=== PATIENT | male | born 1940 | race Caucasian/White ===

== ENCOUNTER → 2016-11-23 | Outpatient (CLI) | payer MEDICARE ==
--- NOTE | 2016-11-23 12:34 | CT ---
EXAMINATION TYPE: CT shoulder LT wo con DATE OF EXAM: 11/23/2016 12:18 PM COMPARISON: X-ray 11/27/2015 HISTORY: Arthritis CT DLP: 407 mGycm Automated exposure control for dose reduction was used. FINDINGS: There is complete loss of joint space of the glenohumeral joint with subchondral sclerosis involving the glenoid. Small cystic geode noted. Hypertrophic spurring noted along the inferior margin of the humeral head. There is severe AC joint arthropathy. Soft tissue calcifications are noted along the upper margin of the humeral head which may represent small loose bodies or related to calcific tendinosis. There is no acute fracture or dislocation. Lung field appears clear. IMPRESSION: SEVERE ARTHROPATHY OF THE GLENOHUMERAL JOINT WITH COMPLETE LOSS OF JOINT SPACE.
== END | disposition home or self-care (01) ==
LOC: RADCTMAIN 11:30
PROVIDERS: ATTEND Orthopaedic Surgery Sports Medicine
DX: M19.012 Primary osteoarthritis, left shoulder (principal)

== ENCOUNTER → 2017-03-13 | Outpatient (CLI) | payer MEDICARE ==
[2017-03-13 14:17] LABS: Blood Urea Nitrogen 22 mg/dL (9-20); Non-African American GFR(MDRD) >60 (>60 ml/min/1.73 sqM)
--- NOTE | 2017-03-13 15:22 | CT ---
EXAMINATION TYPE: CT urogram wo/w con DATE OF EXAM: 03/13/2017 3:05 PM COMPARISON: NONE HISTORY: 76-year-old male gross hematuria for 4-5 days. History of prostate cancer. TECHNIQUE: Contiguous axial scanning of the abdomen and pelvis performed without and with IV Contrast , patient injected with 100 mL of Omnipaque 300. Delayed images through the kidneys and bladder were obtained. Coronal/sagittal reconstructions performed. 3-D reconstructions generated on a dedicated in dependent workstation. CT DLP: 2617 mGycm Automated exposure control for dose reduction was used. FINDINGS: The heart is normal size without pericardial effusion. Lung bases clear without pleural effusion. Suggestion of a small hiatal hernia. No focal liver lesion or biliary ductal dilatation. Portal venous system is patent. Gallbladder, adrenal glands, spleen, and pancreas show no gross abnormality. No dilated small bowel, free fluid, or free air. No mesenteric or retroperitoneal lymphadenopathy. Moderate stool burden without pericolonic inflammatory change. Evaluation of the kidneys shows a 4 mm nonobstructive calculus in the left upper pole and additional 5 mm with adjacent 2 mm calculi in the mid to lower pole. No suspicious mass. There is symmetric upta ke and excretion of contrast from both kidneys No mesenteric or retroperitoneal lymphadenopathy. No suspicious filling defect within the collecting system or along the course of either ureter. Progressive filling of the bladder with contrast without any suspicious filling defect along the post erior aspect of the bladder. Postsurgical changes of prostatectomy with surgical clips along the pelvic sidewalls from prior lymph node dissection. Some prominent but nonenlarged inguinal chain lymph nodes are noted. No abnormal fl uid collection in the pelvis. Bones: Mild degenerative changes at the hips. Additional moderately advanced disc/endplate degenerati ve change throughout the mid and lower lumbar spine. IMPRESSION: 1. NONOBSTRUCTIVE LEFT-SIDED NEPHROLITHIASIS MEASURING UP TO 5 MM. 2. NO SUSPICIOUS URINARY TRACT CALCULUS, HYDRONEPHROSIS, RENAL MASS, OR COLLECTING SYSTEM LESION SEEN . 3. STATUS POST PROSTATECTOMY AND PELVIC LYMPH NODE DISSECTION. 4. SMALL HIATAL HERNIA.
== END | disposition home or self-care (01) ==
LOC: RADCTMAIN 13:27
PROVIDERS: ATTEND Physician Assistant
DX: N20.0 Calculus of kidney (principal); C61 Malignant neoplasm of prostate; K44.9 Diaphragmatic hernia without obstruction or gangrene; Z90.79 Acquired absence of other genital organ(s); Z98.890 Other specified postprocedural states; Z88.8 Allergy status to other drugs, medicaments and biological substances
CPT/HCPCS: 82565; 84520; 74178; 36415; 74400; Q9967

== ENCOUNTER → 2017-04-18 | Outpatient (CLI) | payer MEDICARE ==
[2017-04-18 09:19] LABS: ALT 15 U/L (21-72); AST 21 U/L (17-59); Alkaline Phosphatase 65 U/L (38-126); Anion Gap 7 mmol/L; Blood Urea Nitrogen 20 mg/dL (9-20); Calcium 9.2 mg/dL (8.4-10.2); Carbon Dioxide 28 mmol/L (22-30); Chloride 106 mmol/L (98-107); Glucose 92 mg/dL (74-99); Non-African American GFR(MDRD) >60 (>60 ml/min/1.73 sqM); Potassium 4.3 mmol/L (3.5-5.1); Sodium 141 mmol/L (137-145); Total Protein 6.8 g/dL (6.3-8.2)
[2017-04-18 09:25] LABS: Appearance,Urine Clear (Clear); Bacteria,Urine Occasional /hpf; Bilirubin,Urine Negative (Negative); Glucose,Urine (UA) Negative (Negative); INR 1.2 (<1.1); Ketones,Urine Negative (Negative); Leukocyte Esterase,Urine Negative (Negative); Mucus,Urine Occasional /hpf; Nitrite,Urine Negative (Negative); PH, Urine 6.5 (5.0-8.0); Partial Thromboplastin Time 25.1 sec (22.0-30.0); Particle Count 2193; Protein,Urine Negative (Negative); Prothrombin Time 11.8 sec (9.0-12.0); RBC,Urine 4 /hpf (0-5); Specific Gravity,Urine 1.012 (1.001-1.035); Squamous Epithelial Cell,Urine <1 /hpf (0-4); UA Billing (MACRO vs. MICRO) MICRO; Urobilinogen,Urine <2.0 mg/dL (<2.0); WBC,Urine <1 /hpf (0-5)
[2017-04-18 09:38] LABS: CHCM 32.8; HCT 46.9 % (39.0-53.0); HDW 2.23; HGB 15.1 gm/dL (13.0-17.5); MCH 31.5 pg (25.0-35.0); MCHC 32.1 g/dL (31.0-37.0); Mean Platelet Volume 7.2; RBC 4.79 m/uL (4.30-5.90); RDW 12.8 % (11.5-15.5); WBC 4.2 k/uL (3.8-10.6)
== END | disposition home or self-care (01) ==
LOC: LABPAT 07:52
PROVIDERS: ATTEND Orthopaedic Surgery Sports Medicine
DX: Z01.810 Encounter for preprocedural cardiovascular examination (principal); Z01.812 Encounter for preprocedural laboratory examination
CPT/HCPCS: 36415; 80053; 81001; 84439; 84443; 85027; 85610; 85730; 87070

== ENCOUNTER → 2017-04-18 | Outpatient (CLI) | payer MEDICARE | END | disposition home or self-care (01) | LOC: LABWHC1 07:55 | PROVIDERS: ATTEND Family Medicine | DX: E03.9 Hypothyroidism, unspecified (principal) | CPT/HCPCS: 36415; 84439; 84443 ==

== ENCOUNTER 2017-05-04 09:21 | Inpatient (IN) | payer MEDICARE ==
[2017-05-02 09:05] VITALS: BMI 27.2
[~2017-05-04 09:21] MED LIST: ACETAMINOPHEN TAB 500 MG TAB PO ONE; DEXAMETHASONE SOD PHOSPHATE 10 MG/ML 1 ML VIAL IV ONE; HYDROmorphone 1 MG/ML 1 ML SYRINGE IVP PRN; LACTATED RINGERS 1,000 ML IV SCH; LIDOCAINE 1% 20 ML VIAL (10MG/ML) FOR IV START INTRADERMA PRN; MELOXICAM 7.5 MG TAB PO ONE; MIDAZOLAM 2 MG/2 ML VIAL IV PRN; ONDANSETRON 4 MG/2 ML VIAL IVP ONE; TRANEXAMIC ACID 1,000 MG in SODIUM CHLORIDE 0.9% 100 ML IVPB ONE; ceFAZolin 2 GM in SODIUM CHLORIDE 0.9% 100 ML IVPB ONE
[2017-05-04] MEDS ORDERED: PROPOFOL 10 MG/ML 20 ML VIAL IV ONE (11:28)
[2017-05-04] MEDS ORDERED: ROCURONIUM BROMIDE 10 MG/ML 10 ML VIAL IV ONE (11:28)
[2017-05-04] MEDS ORDERED: NEOSTIGMINE 1 MG/ML 10 ML VIAL ONE (11:28)
[2017-05-04] MEDS ORDERED: SUCCINYLCHOLINE CHLORIDE 100 MG/5 ML SYR IV ONE (11:28)
[2017-05-04] MEDS ORDERED: LIDOCAINE 1% INJ 10MG/ML (20 ML MDV) ONE (11:28)
[2017-05-04] MEDS ORDERED: PHENYLEPHRINE-0.9% NACL SYG 1 MG/10 ML SYRINGE ONE (11:28)
[2017-05-04] MEDS ORDERED: GLYCOPYRROLATE 0.2 MG/ML 2 ML VIAL ONE (11:28)
[2017-05-04] MEDS ORDERED: TRANEXAMIC ACID 1,000 MG/10 ML VIAL ONE (11:28)
[2017-05-04] MEDS ORDERED: fentaNYL (PF) 50 MCG/ML 2 ML AMP ONE (11:28)
[2017-05-04] MEDS ORDERED: ePHEDrine 50 MG/ML 1 ML AMP ONE (11:28)
[2017-05-04] MEDS ORDERED: SODIUM CHLORIDE 0.9% 100 ML BAG ONE (11:28)
[2017-05-04] MEDS ORDERED: ceFAZolin 3,000 MG in SODIUM CHLORIDE 0.9% IRRIGATIO 3,000 ML IRRIGATION ONE (12:26)
[2017-05-04] MEDS ORDERED: LACTATED RINGERS 1,000 ML IV ONE (12:51)
[2017-05-04] MEDS ORDERED: VANCOMYCIN 1,000 MG VIAL MISCELLANE ONE (13:36)
[2017-05-04] MEDS ORDERED: PROCHLORPERAZINE SUPPOSITORY 25 MG SUPP RECTAL PRN (14:27)
[2017-05-04] MEDS ORDERED: diphenhydrAMINE 25 MG CAP PO PRN (14:27)
[2017-05-04] MEDS ORDERED: HYDROcodone/APAP 5-325MG 1 EACH TAB PO PRN (14:27)
[2017-05-04] MEDS ORDERED: HYDROmorphone 1 MG/ML 1 ML SYRINGE IVP PRN ×2 (14:27)
[2017-05-04] MEDS ORDERED: SENNOSIDES-DOCUSATE SODIUM 1 EACH TAB PO PRN (14:27)
[2017-05-04] MEDS ORDERED: TEMAZEPAM 15 MG CAP PO PRN (14:27)
[2017-05-04] MEDS ORDERED: ONDANSETRON 4 MG/2 ML VIAL IVP PRN (14:27)
--- NOTE | 2017-05-04 15:10 | XR ---
EXAMINATION TYPE: XR shoulder limited LT DATE OF EXAM: 05/04/2017 CLINICAL HISTORY: Left shoulder surgery TECHNIQUE: Single postoperative view of the left shoulder is obtained. COMPARISON: Left shoulder x-ray November 27, 2015 FINDINGS: There is metallic hardware from left shoulder arthroplasty which is satisfactory in positi on. Glenoid anchor is present. There is surgical resection of prominent inferior medial osteophyte. S urrounding subcutaneous gas and soft tissue swelling is noted. IMPRESSION: Metallic hardware from left shoulder surgery is satisfactory in position.
[2017-05-04] MEDS: LACTATED RINGERS 1,000 ML IV SCH ×2 (16:07→22:29)
[2017-05-04 18:03] LABS: Basophils % (A) 0 %; CH 32.1; CHCM 33.4; Eosinophils % (A) 0 %; HCT 42.4 % (39.0-53.0); HDW 2.19; HGB 14.2 gm/dL (13.0-17.5); Luc # (Auto) 0.02; Luc % (Auto) 0; Lymphocytes # (A) 0.5 k/uL (1.0-4.8); Lymphocytes % (A) 4 %; MCH 32.3 pg (25.0-35.0); MCHC 33.5 g/dL (31.0-37.0); MCV 96.5 fL (80.0-100.0); Mean Platelet Volume 7.1; Monocytes # (A) 0.3 k/uL (0-1.0); Monocytes % (A) 3 %; Neutrophils # (A) 10.4 k/uL (1.3-7.7); Neutrophils % (A) 93 %; RBC 4.39 m/uL (4.30-5.90); WBC 11.2 k/uL (3.8-10.6); WBC (Perox) 11.97
[2017-05-04] MEDS ORDERED: ACETAMINOPHEN TAB 500 MG TAB PO PRN (18:17)
[2017-05-04] MEDS: ceFAZolin 2 GM in SODIUM CHLORIDE 0.9% 100 ML IVPB SCH (20:09)
[2017-05-04] MEDS: CARBIDOPA-LEVODOPA 25-100 MG 1 EACH TAB PO SCH (20:11)
[2017-05-04] MEDS: amLODIPine 5 MG TAB PO SCH (20:18)
[2017-05-04] MEDS: LEVOTHYROXINE 75 MCG TAB PO SCH (20:19)
[2017-05-04] MEDS: DOXYCYCLINE 50 MG CAP PO SCH (22:04)
[2017-05-04] MEDS: HYDROmorphone 1 MG/ML 1 ML SYRINGE IVP PRN (22:24)
[2017-05-05] MEDS: HYDROmorphone 1 MG/ML 1 ML SYRINGE IVP PRN (01:32)
[2017-05-05 02:15] VITALS: RESP 16
[2017-05-05] MEDS: HYDROcodone/APAP 5-325MG 1 EACH TAB PO PRN ×2 (02:58→08:48)
[2017-05-05] MEDS: ceFAZolin 2 GM in SODIUM CHLORIDE 0.9% 100 ML IVPB SCH (04:49)
[2017-05-05] MEDS: hydrOXYzine PAMOATE 25 MG CAP PO PRN ×2 (05:26→08:48)
[2017-05-05] MEDS: CARBIDOPA-LEVODOPA 25-100 MG 1 EACH TAB PO SCH ×5 (05:28→19:01)
[2017-05-05] MEDS ORDERED: CARBIDOPA-LEVODOPA 25-100 MG 1 EACH TAB PO SCH (06:00)
[2017-05-05] MEDS ORDERED: LEVOTHYROXINE 75 MCG TAB PO SCH (06:30)
--- NOTE | 2017-05-05 07:30 | OP ---
DATE OF SERVICE: SURGEON: LANDON GARRETT MD INTERNAL INVESTIGATOR: SHELDON CELIS PA-C. PREOPERATIVE DIAGNOSIS: Left shoulder osteoarthrosis. POSTOPERATIVE DIAGNOSIS: Left shoulder osteoarthrosis. OPERATION: Left total shoulder arthroplasty. ANESTHESIA: General endotracheal with an interscalene block. ESTIMATED BLOOD LOSS: 200 mL. DRAINS: One deep drain. SPECIMENS REMOVED: COMPLICATIONS: None apparent. DISPOSITION: Postanesthesia care. OPERATIVE FINDINGS: INDICATIONS: Mr. Buckley a very pleasant 76-year-old gentleman with long-standing left shoulder pain. Work-up including x-rays revealed advanced left shoulder osteoarthrosis. At this point, it is felt that he has failed conservative management and he would like to proceed with operative intervention. The risks of the procedure were discussed with him in detail. These risks include, but are not limited to risk infection, nerve damage, bleeding, pain, instability in the shoulder, loosening of implants and deep infection, which could revision operation. There is also a risk of deep vein thrombosis, which could lead to fatal pulmonary embolism. The patient understood the risks. All questions with regards to the risks of the procedure were answered to his satisfaction. Appropriate informed consent was obtained. DESCRIPTION OF THE PROCEDURE: The patient was identified in the preoperative holding area. Surgical site was marked by both the patient and myself. He was given 2 grams of Ancef IV for prophylactic purposes. He was then transferred to the operative suite, placed supine on the operating room table. General anesthetic was then administered and dosed by the anesthesia department without apparent complication. An examination under anesthesia was then performed of the left shoulder. He had passive elevation to 90 degrees, external rotation at the side was to 25 degrees. The patient's left upper extremity was then prepped and draped usual sterile fashion. Standard surgical pause was then undertaken to ensure that we were operating on correct site and that appropriate preoperative antibiotics had been given. All staff in the room were in agreement and we proceeded. The acromion, AC joint, clavicle, and coracoid were marked with a surgical pen. A planned incision starting at the level of clavicle and extending distally over the deltopectoral interval approximately 1 cm lateral to the coracoid was marked with a surgical pen. The incision was then made with a 10 blade scalpel. Dissection was carried down sharply to the deltoid fascia. The deltopectoral interval was identified at the level of clavicle. A small band retractor was then placed onto the proximal deltoid. I then released the deltoid fascia with on the lateral aspect of the cephalic vein. The vein was left in its bed medially. The cephalic vein was protected throughout the entire case. I then identified the clavipectoral fascia. This was incised proximally to the level of the coracoacromial ligament. The coracoacromial ligament was left intact. I then used my finger to spread the interval between the conjoined tendon and the subscapularis. I felt for the axillary nerve, which was readily palpable. I then cleared the subacromial subdeltoid spaces of bursal and scar tissue. I then utilized a brown retractor to hold the deltoid and expose the humeral head. I then proceeded to release of the subscapularis in the anterior-inferior shoulder capsule. The rotator cuff was inspected. It was found to be intact. The rotator interval was identified. The course of the biceps tendon was also identified. I then released the rotator interval. It was released at the base of the coracoid and then out laterally. The subscapularis and the capsule were released intratendinously. The subscapularis and the capsule release extended distally in a lazy S fashion, approximately 1 cm medial to the biceps tendon. I then continued to release the capsule along the inferior neck in a vertical fashion to about the 6:00 position. Great care was taken to ensure that the capsule was always visualized as it was released to avoid injuring the axillary nerve. I then brought the Weinstein ceramic engineer with the arm externally rotated and abducted. I continued to release the capsule inferomedially to the 4:00 position. The inferior osteophytes were then removed as well. This was done with a rongeur. I then proceeded with preparation of the humerus. I removed all the goat coe osteophytes. I then removed the subchondral plate from the superior aspect of the humeral head using a large rongeur. I then used a starter reamer to gain access to the humeral canal. This was approximately 1 cm medial to the rotator cuff insertion and 1 cm posterior to the bicipital groove. I then prepared the humeral canal with hand reaming. I started with a 6 mm reamer and progressed in 1 mm increments until firm resistance was encountered. This was at 13 mm. The reamer handle was then left in place. I then utilized the humeral resection guide. This was set at 30 degrees 30 degrees of retrotorsion. The cutting block was set 1 to 2 mm above the insertion of the rotator cuff. I then proceeded to osteotomize the head with an oscillating saw. I removed the resection guide and then completed the osteotomy. I then proceeded with trial stem placement. A trial size 13 mini stem was broached in the canal starting with a 6 mm broach and increasing up to a 13 mm broach. A 13 mm trial stem was then placed. I then proceeded with trial reduction. I started with a 46 x 21 x 50 mm head. This fit very nicely. The head fit opposite the glenoid. The rotator cuff was not tented. Internal rotation was to 90 degrees, elevation was to 150 degrees and translation was one half of the head in neutral rotation and inferiorly one quarter of the head in 15 to 20 degrees of abduction. I then removed the trial head. The stem was left in place. I then proceeded with exposure the glenoid. At this point, I did release the biceps tendon. This was tenotomized at the level of the superior labrum. A bone hook was then used to pull the humerus laterally. I inspected the joint for any loose bodies. The condition of the rotator cuff was again inspected. It was in good condition. No evidence of a full-thickness tearing. The Bhattman retractor was then placed onto the posterior glenoid rim. The arm was then placed in approximately 70 to 80 degrees of abduction and slight flexion on the Weinstein stand. I then proceeded to remove the hypertrophic labrum to definitively identify the actual glenoid. I then selected the size of the glenoid. A large-sized glenoid fit very nicely. I then utilized the starter drill to make the centering hole. I then proceeded to ream the glenoid fossa. This was done with a large-sized reamer. The reaming was done and just taken down to the Paprika sign. I had a nice bleeding surface. There is tiny bit of posterior inferior loss, I preferentially took slightly more anterior glenoid with reaming. I then proceeded to place the glenoid drill holes. The peripheral holes were then placed and center hole was drilled as well. I then placed the trial large-sized glenoid it fit very nicely onto the glenoid. I then proceed with cementing. I waterpicked the wound and the bone. The drill holes were then packed with Ray-Deepthi sponges. The cement was then mixed on the back table by the bakery assistant. This was antibiotic-impregnated cement. Drill holes were then packed with cement utilizing 20 mL syringe. These were packed very tightly. A small amount of cement was then placed onto the posterior aspect of the real glenoid component as well. I then impacted the real glenoid component into place. This was a Biomet large-sized pegged glenoid component with Regenerex central peg. Excess cement was then removed utilizing the freer elevator. Pressure was then held on the glenoid component until the cement had hardened. I then removed the Bhattman retractor. I then proceeded with humeral component trial reduction with the glenoid. A 46 x 21 x 50 head was then placed back onto the stem. Again this was taken through trial. The head fit opposite the glenoid. The rotator cuff was not tented. Elevation was to 150 degrees, internal rotation was to 90 degrees and translation was one half of the head in neutral rotation and one quarter of the head in 15 to 20 degrees of abduction. I then had the airline security representative open a 46 x 21 x 50 real head and a size 13 Biomet mini stem. The stem was then impacted in the canal. The real head was then impacted onto the stem. The shoulder was reduced. I then proceeded with closure. The wound was again thoroughly irrigated with sterile saline solution with antibiotic added. The rotator interval was then closed with #2 Vicryl interrupted suture. The subscapularis was repaired with #2 FiberWire interrupted suture. A deep drain was then placed and brought out superiorly away from the incision. Again the wound was thoroughly irrigated. I felt for the axillary nerve, which was readily palpable. Approximately one half of 1 gram of vancomycin powder was then sprinkled into the wound. I then closed the deltopectoral interval with 0-Vicryl interrupted suture. Again, the remainder of the vancomycin powder was then sprinkled onto the wound. The subcutaneous tissues then closed with 2-0 Vicryl interrupted suture and the skin was closed with a running 3-0 Quill suture. Sterile compressive dressing was then applied. The patient's left upper extremity was placed into shoulder immobilizer. All sponge and needle counts were deemed correct prior to closure. The patient tolerated the procedure without apparent complication. He was transferred to recovery room in stable condition.
[2017-05-05] MEDS: amLODIPine 5 MG TAB PO SCH (08:48)
[2017-05-05] MEDS: PANTOPRAZOLE 40 MG TABLET PO SCH (08:48)
[2017-05-05] MEDS: DOXYCYCLINE 50 MG CAP PO SCH ×2 (08:49→20:01)
[2017-05-05] MEDS: ENOXAPARIN 40 MG/0.4 ML SYRINGE SQ SCH (08:49)
[2017-05-05] MEDS: LACTATED RINGERS 1,000 ML IV SCH ×2 (08:50→19:02)
[2017-05-05] MEDS ORDERED: HYDROcodone/APAP 7.5-325MG 1 EACH TAB PO PRN (09:00)
[2017-05-05] MEDS: ASPIRIN 81 MG CHEW PO SCH (09:21)
--- NOTE | 2017-05-05 09:54 | PN ---
DATE OF VISIT: 05/05/2017 Kj is postoperative day #1, Status post left total shoulder arthroplasty. He is resting comfortably. Pain is controlled with oral pain medicine and supplemented with Dilaudid at this point. He has no other complaints. EXAM: T-max 98.1. Blood pressure 123/68, pulse is 69, satting 96% on room air. The dressing was taken down. The incision is dry. There is no drainage at all on dressing. The drain had minimal output. I pulled the drain today. Fresh dressing was placed. He had intact extensor pollicis longus, flexor pollicis longus, extensor indicis, hand intrinsics and FDP to the small finger. Intact flexion-extension at the elbow and then also intact anterior middle and posterior deltoid function. He has an intact radial median ulnar and axillary nerve sensation and a 2+ radial pulse with brisk capillary refill in all of his digits. IMPRESSION: Postoperative day #1 left total shoulder arthroplasty. RECOMMENDATIONS: Kj is doing very well in the early postoperative period. If he is feeling better later this morning and the pain is controlled with oral pain medicine, he may be discharged home. I gave him instructions to keep the incision clean and dry. He is to utilize the sling. He is okay to do active elbow motion, wrist and hand as well. He is to keep the shoulder mobilized in a sling at all other times. He will continue with doxycycline 100 mg one p.o. b.i.d. the next 5 days and ambulation for DVT prophylaxis. All of his questions were answered to his satisfaction, we will see him back in the office in 10 days for recheck.
[2017-05-05] MEDS: HYDROcodone/APAP 7.5-325MG 1 EACH TAB PO PRN ×2 (14:25→20:05)
--- NOTE | 2017-05-05 16:25 | P.PN ---
Subjective Principal diagnosis: Left Total Shoulder Arthroplasty Patient is postop day #1 from left total shoulder arthroplasty performed by Dr. Dodge. He seen at bedside this morning. He has pain at the surgical site as expected. He denies new complaints. He denies numbness or tingling. Review of systems is negative for fever, chills, chest pain, short of breath, numbness , calf pain, tingling, headaches, nausea, vomiting, slurred speech or other. Objective - Vital Signs Vital signs: Vital Signs Temp 98.1 F 05/05/17 07:00 Pulse 69 05/05/17 08:00 Resp 16 05/05/17 08:00 BP 123/68 05/05/17 07:00 Pulse Ox 96 05/05/17 07:00 Intake & Output 05/04/17 05/05/17 05/05/17 18:59 06:59 18:59 Intake Total 1638 560 Output Total 550 1100 Balance 1088 -1100 560 Weight 86.183 kg Intake: IV 1401 Oral 237 560 Output: Urine 350 900 Straight 225 Uretheral (Deutsch) 200 Post Void Residual 200 Estimated Blood Loss 200 Other: Voiding Method Urinal Urinal Urinal - Exam Inspection of the left upper extremity shows benign surgical wound. There is no active bleeding, drainage or dehiscence. Left upper extremity neurovascular status intact with motor and sensation throughout. There is 2+ radial pulse and less than 2 second cap refill distally. Calves are soft and nontender. Abdomen soft and nontender. - Constitutional General appearance: Present: no acute distress - Psychiatric Psychiatric: Present: A&O x's 3, appropriate affect, intact judgment & insight - Labs CBC & Chem 7: 05/04/17 17:31 Labs: Abnormal Lab Results - Last 24 Hours (Table) 05/04/17 Range/Units 17:31 WBC 11.2 H (3.8-10.6) k/uL Neutrophils # 10.4 H (1.3-7.7) k/uL Lymphocytes # 0.5 L (1.0-4.8) k/uL Assessment and Plan (1) Status post total shoulder arthroplasty Narrative/Plan: Patient will continue with routine postop orthopedic protocol including pain management, wound care, physical therapy, DVT prophylaxis and postop medical management. His drain has been discharged without difficulty or complication. He will likely discharge to home tomorrow, 05/06/2017. Status: Acute Time with Patient: Less than 30
--- NOTE | 2017-05-05 18:58 | CONS ---
DATE OF CONSULTATION: 05/05/2017 REASON FOR CONSULTATION: Medical management, requested by Dr. Dodge. CONSULTATION: This is a pleasant 76-year-old patient of Dr. Del Valle whose chronic stable medical conditions include GERD, Parkinson's disease, hypothyroid, osteoarthritis. Patient underwent left total shoulder arthroplasty. Post procedure he has some pain. No nausea or vomiting. Did tolerate his diet. At baseline he has some tremors. REVIEW OF SYSTEMS: CONSTITUTIONAL: None. HEENT: None. RESPIRATORY: None. CARDIOVASCULAR: None. GASTROINTESTINAL: Heartburn. GENITOURINARY: None. MUSCULOSKELETAL: Arthritic pain in multiple joints. DERMATOLOGICAL: None. HEMATOLOGIC: None. LYMPHATICS: None. PSYCHIATRY: None. NEUROLOGICAL: Tremors present. PAST MEDICAL HISTORY: 1. GERD. 2. Prostate cancer. 3. Parkinson's disease. PAST SURGICAL HISTORY: 1. Bladder surgery. 2. Cardiac catheterization. 3. Left knee replacement. 4. Bilateral cataracts. SOCIAL HISTORY: No smoking. Alcohol occasionally. FAMILY HISTORY: Reviewed; non-contributory to presentation. HOME MEDICATIONS: 1. Norvasc 5 mg a day. 2. Omeprazole 20 mg a day. 3. Naproxen 500 mg a day. 4. Levoxyl 75 mcg a day. 5. Sinemet 25/100 one tablet b.i.d. at 10 a.m. and 4 p.m. and 2 tablets at 6 a.m., 12 noon and 7 p.m. 6. Tylenol 1000 mg q.6 p.r.n. ALLERGIES: REGLAN. On examination, temperature 98.1, pulse 69, respiration 16, blood pressure 123/68, pulse ox 98% on room air. GENERAL APPEARANCE: Average build. Sitting up, not in distress. EYES: Pupils equal. Conjunctivae normal. HEENT: Oral cavity normal. NECK: JVD not raised. Mass not palpable. RESPIRATORY: Effort normal. Lungs are clear. CARDIOVASCULAR: First and second sounds normal. No edema. ABDOMEN: Soft, nontender. Liver and spleen not palpable. LYMPHATIC: No lymph node palpable in neck or axillae. PSYCHIATRY: Alert and oriented x3. Mood and affect normal. NEUROLOGICAL: Resting tremors are present. MUSCULOSKELETAL: Left arm in a sling. Evidence of osteoarthritis in other joints. INVESTIGATIONS: White count 11.7. Hemoglobin 14.2. ASSESSMENT: 1. Left total shoulder arthroplasty. 2. Gastroesophageal reflux disease. 3. Idiopathic Parkinson's disease. 4. Hypothyroidism. 5. Primary osteoarthritis in multiple joints. PLAN: Home medication is to continue. Care was discussed with the patient and his at the bedside. Questions were answered. Thank you, Dr. Dodge.
[2017-05-05] MEDS: LEVOTHYROXINE 75 MCG TAB PO SCH (20:01)
[2017-05-06] MEDS: HYDROcodone/APAP 7.5-325MG 1 EACH TAB PO PRN ×2 (01:54→09:32)
[2017-05-06] MEDS: hydrOXYzine PAMOATE 25 MG CAP PO PRN (01:54)
[2017-05-06] MEDS: LACTATED RINGERS 1,000 ML IV SCH (05:18)
[2017-05-06] MEDS: CARBIDOPA-LEVODOPA 25-100 MG 1 EACH TAB PO SCH ×3 (05:27→12:43)
[2017-05-06 08:15] VITALS: BP 120/72; PULSE 95; TEMP 98.4
[2017-05-06] MEDS: DOXYCYCLINE 50 MG CAP PO SCH (09:14)
[2017-05-06] MEDS: ENOXAPARIN 40 MG/0.4 ML SYRINGE SQ SCH (09:14)
[2017-05-06] MEDS: PANTOPRAZOLE 40 MG TABLET PO SCH (09:15)
[2017-05-06] MEDS: amLODIPine 5 MG TAB PO SCH (09:16)
[2017-05-06] MEDS: ASPIRIN 81 MG CHEW PO SCH (09:33)
--- NOTE | 2017-05-06 11:24 | P.DS ---
Providers Date of admission: 05/04/17 09:21 Expected date of discharge: 05/06/17 Attending physician: Manny Dodge Consults: 05/04/17 14:34 Consult Physician Routine Consulting Provider: Norman Duggan Consult Reason/Comments: post op medical management Do you want consulting provider notified?: Yes Primary care physician: Shaji Del Valle - Discharge Diagnosis(es) (1) Osteoarthritis of left shoulder Current Visit: Yes Status: Acute (2) Status post total shoulder arthroplasty Current Visit: Yes Status: Acute Priority: Medium Hospital Course: This is a pleasant 76-year-old male who presented with shoulder osteoarthrosis who failed outpatient conservative therapy. He was admitted for a left total shoulder arthroplasty. The patient tolerated the procedure well and did well postoperatively. He's been working on active range of motion of the left wrist and all fingers left hand. He's avoided weightbearing with the left upper extremity. He has not been using the shoulder. Condition on day of discharge stable. Patient will be discharged home. Patient was cleared preoperatively for surgery by Dr. Shaji Del Valle. Patient currently denies any nausea, vomiting , fever, or chills. Patient is eating and voiding freely without difficulty. Patient has not had a bowel movement or the past 3 days but states his abdomen is soft nontender and he is not currently experiencing any abdominal distention or pain. He is passing gas without difficulty. He is currently taking a stool softener will be given a prescription for Colace 100 mg twice per day at discharge. Patient will continue to be nonweightbearing for the left upper extremity. He must continue to maintain the left upper extremity sling. We discussed he may work on gentle range of motion of the left elbow. Keep the incision site clean , dry, and intact. We discussed he may remove the dressing in 3 days. If he is not experiencing any drainage at that time would be okay for the patient to shower. Then had a follow-up with Dr. Dodge in approximately 10 days for further evaluation. At discharge, he is given prescriptions for Colace 100 mg, doxycycline 100 mg, and [place] 7.5 mg/325 mg. These medicines have been sent to the pharmacy prior to discharge. Physical Exam on day of discharge: Total Shoulder Arthroplasty: Status post surgical day number 2 Patient is examined sitting upright in bed Patient is awake and alert, and oriented 3 Vital signs stable Good chest excursion with deep inspiration and expiration Abdomen soft nontender Dressing over the left shoulder is clean, dry, and intact; Incision shows no active drainage, purulence, or obvious signs of infection Upper extremity currently placed in an arm sling Patient is able to wiggle all fingers, thumb, and move wrist throughout range of motion without significant difficulty Full range of motion of the elbow without significant difficulty Neurovascularly intact bilateral upper extremities Capillary refill less than 2 seconds bilateral upper extremities Procedures: Left total shoulder arthroplasty Patient Condition at Discharge: Stable Plan - Discharge Summary New Discharge Prescriptions: New Docusate [Colace] 100 mg PO BID #60 capsule Doxycycline Hyclate 100 mg PO BID #10 tab HYDROcodone/APAP 7.5-325MG [[place] 7.5-325] 1 - 2 tab PO Q6HR PRN #60 tab PRN Reason: Pain No Action Aspirin 81 mg PO DAILY Omeprazole [Omeprazole] 20 mg PO DAILY Levothyroxine Sodium [Levoxyl] 75 mcg PO DAILY Carbidopa-Levodopa 25-100 mg [Sinemet 25-100 mg] 8 tab PO DAILY amLODIPine [Norvasc] 5 mg PO DAILY Naproxen 500 mg PO DAILY Acetaminophen Tab [Tylenol Tab] 1,000 mg PO Q6HR PRN PRN Reason: Pain Discharge Medication List Aspirin 81 mg PO DAILY 05/23/15 [History] Carbidopa-Levodopa 25-100 mg [Sinemet 25-100 mg] 8 tab PO DAILY 05/23/15 [ History] Levothyroxine Sodium [Levoxyl] 75 mcg PO DAILY 05/23/15 [History] Naproxen 500 mg PO DAILY 05/23/15 [History] Omeprazole [Omeprazole] 20 mg PO DAILY 05/23/15 [History] amLODIPine [Norvasc] 5 mg PO DAILY 05/23/15 [History] Acetaminophen Tab [Tylenol Tab] 1,000 mg PO Q6HR PRN 05/02/17 [History] Docusate [Colace] 100 mg PO BID #60 capsule 05/05/17 [Rx] Doxycycline Hyclate 100 mg PO BID #10 tab 05/05/17 [Rx] HYDROcodone/APAP 7.5-325MG [[place] 7.5-325] 1 - 2 tab PO Q6HR PRN #60 tab [Rx] Follow up Appointment(s)/Referral(s): Manny Dodge MD [STAFF PHYSICIAN] - 10 Days Activity/Diet/Wound Care/Special Instructions: 1. Take meds as directed 2. f/u with Dr. Dodge in office 3. None weightbearing left upper extremity 4. Maintain sling 5. keep wound clean and dry Discharge Disposition: HOME SELF-CARE
--- NOTE | 2017-05-08 08:16 | PN ---
DATE OF SERVICE: 05/07/2017 PRESENTING COMPLAINT: Left shoulder surgery. INTERVAL HISTORY: Patient is status post left shoulder surgery. Feeling overall weak, finding it unable to get out of bed. Did tolerate his diet. is at the bedside. Tremors are present. Review of symptoms done for constitutional, cardiovascular, GI, pulmonary, neurological; relevant findings as above. Current medications are reviewed. On examination, temperature 98.4, pulse 95, respiration 16, blood pressure 120/72, pulse ox 95% on room air. GENERAL APPEARANCE: Sitting in bed, awake. EYES: Pupils equal. Conjunctivae normal. NECK: JVD not raised. Mass not palpable. RESPIRATORY: Effort normal. LUNGS: Clear. CARDIOVASCULAR: First and second sounds normal. No edema. Left arm in a sling. NEUROLOGICAL: Movements are slow. ASSESSMENT: 1. Left shoulder arthroplasty. 2. Gastroesophageal reflux disease. 3. Idiopathic Parkinson's disease with possibly off effect given the surgery as part of on and off effect of Parkinson's disease. 4. Hypothyroidism. 5. Primary osteoarthritis of multiple joints. PLAN: Care was discussed with the patient and his in detail. Did explain that it is quite common with surgery to have off effect where the patient becomes weaker from Parkinson's disease. No change in medications to be done except just to check keep a close eye and they understand the same. Thank you, Dr. oDdge.
== END 2017-05-06 14:27 | disposition home or self-care (01) | DRG 483 ==
LOC: 2ORMAIN 09:21 → 3SUR 14:38
PROVIDERS: ADMIT Orthopaedic Surgery Sports Medicine; ATTEND Orthopaedic Surgery Sports Medicine
PROC: 0RRK0JZ Replacement of Left Shoulder Joint with Synthetic Substitute, Open Approach (ICD-10-PCS; principal; 2017-05-04 11:00)
DX: M19.012 Primary osteoarthritis, left shoulder (principal); G20 Parkinson's disease; I10 Essential (primary) hypertension; I25.10 Atherosclerotic heart disease of native coronary artery without angina pectoris; M75.22 Bicipital tendinitis, left shoulder; E03.9 Hypothyroidism, unspecified; K21.9 Gastro-esophageal reflux disease without esophagitis; R53.1 Weakness; Z79.82 Long term (current) use of aspirin; Z79.899 Other long term (current) drug therapy; Z85.46 Personal history of malignant neoplasm of prostate; Z96.652 Presence of left artificial knee joint
CPT/HCPCS: 85025; 88300

== ENCOUNTER → 2018-01-11 | Outpatient (CLI) | payer MEDICARE ==
--- NOTE | 2018-01-11 09:20 | US ---
EXAMINATION TYPE: US abdomen comp/pelvis limited DATE OF EXAM: 01/11/2018 COMPARISON: NONE CLINICAL HISTORY: 77-year-old male K59.00. Intermittent constipation x 1 month Technique: Multiple sonographic images of the abdomen and bladder are obtained. FINDINGS: Liver Length: 15.2 cm Gallbladder Wall: 0.2 cm CBD: 0.4 cm Spleen: n/a Right Kidney: 10.7 x 5.5 x 5.0 cm Left Kidney: 10.8 x 5.7 x 5.3 cm Pancreas: Only a small portion of the pancreatic neck is seen. Remainder suboptimally visualized sec ondary to shadowing from bowel gas. Liver: Limited intercostal views show overall homogeneous echotexture. No focal lesion seen. Gallbladder: Scanned intercostally, limited by rib shadowing. No abnormal distention, wall thickenin g, pericholecystic fluid, or shadowing calculi. CBD: visualized portions wnl, limited by overlying bowel gas Spleen: obscured by overlying bowel gas Right Kidney: No hydronephrosis. Left Kidney: No hydronephrosis. However, echogenic foci present within the kidney, largest is in the central aspect, possibly in the collecting system measuring 1.3 cm. Limited by rib shadowing Upper IVC: wnl Abd Aorta: visualized portions wnl, mid portion obscured by overlying midline bowel gas Bladder: Underdistention limits its evaluation. Bilateral Jets Seen no IMPRESSION: 1. Prominent rib shadowing requiring intercostal windows for multiple structures. Further limitation due to bowel gas. 2. Left-sided nephrolithiasis. A 1.3 cm calculus may be located in the left renal collecting system.
== END | disposition home or self-care (01) ==
LOC: RADUSWWP 06:45
PROVIDERS: ATTEND Family Medicine
DX: N20.0 Calculus of kidney (principal); K59.00 Constipation, unspecified
CPT/HCPCS: 76700; 76857

== ENCOUNTER 2018-04-19 10:43 | Day surgery (SDC) | payer MEDICARE ==
[2018-04-17 10:27] VITALS: BMI 25.0
[~2018-04-19 10:43] MED LIST changes: -ACETAMINOPHEN TAB 500 MG TAB PO ONE; -DEXAMETHASONE SOD PHOSPHATE 10 MG/ML 1 ML VIAL IV ONE; -HYDROmorphone 1 MG/ML 1 ML SYRINGE IVP PRN; -LIDOCAINE 1% 20 ML VIAL (10MG/ML) FOR IV START INTRADERMA PRN; -MELOXICAM 7.5 MG TAB PO ONE; -MIDAZOLAM 2 MG/2 ML VIAL IV PRN; -ONDANSETRON 4 MG/2 ML VIAL IVP ONE; -TRANEXAMIC ACID 1,000 MG in SODIUM CHLORIDE 0.9% 100 ML IVPB ONE; -ceFAZolin 2 GM in SODIUM CHLORIDE 0.9% 100 ML IVPB ONE
[2018-04-19 11:34] VITALS: TEMP 98.2
[2018-04-19] MEDS ORDERED: LIDOCAINE 1% 20 ML VIAL (10MG/ML) FOR IV START INTRADERMA ONE (11:42)
[2018-04-19] MEDS ORDERED: LIDOCAINE 1% INJ 10MG/ML (20 ML MDV) ONE (12:00)
[2018-04-19] MEDS ORDERED: PROPOFOL 10 MG/ML 20 ML VIAL IV ONE (12:00)
--- NOTE | 2018-04-19 12:21 | P.PCN ---
Date of Procedure: 04/19/18 Procedure(s) Performed: BRIEF HISTORY: Patient is a 77-year-old, pleasant, male, scheduled for an upper endoscopy as a part of evaluation of epigastric pain for the last few months duration. He feels like upper abdominal discomfort with bloating and tightness. No help with Prilosec which he took for a few weeks. His and scheduled for an upper endoscopy to evaluate further. PROCEDURE PERFORMED: Esophagogastroduodenoscopy with biopsy. PREOPERATIVE DIAGNOSIS: Epigastric pain a few months duration. IV sedation per anesthesia. PROCEDURE: After informed consent was obtained, the patient was brought into the endoscopy unit. IV sedation was administered by Anesthesia under continuous monitoring. Initially the Olympus GIF-140 video endoscope was inserted into the mouth. Esophagus intubated without any difficulty. It was gradually advanced into the stomach and duodenum and carefully examined. The bulb and the second part of the duodenum appeared normal. The scope at this time was withdrawn to the stomach, adequately insufflated with air, and upon careful examination, mucosa of the antrum, had patchy areas of erythema and biopsies were done from this area. The body, cardia and the fundus appeared normal. The scope was then withdrawn into the esophagus. The GE junction was located at 39 cm from the incisors. There was once were visualized and the GE junction consistent with LA grade a reflux esophagitis. The rest of esophagus appeared normal and the patient tolerated the procedure well. IMPRESSION: 1. Mild antral Gastritis. 2. LA grade a reflux esophagitis. RECOMMENDATIONS: The findings of this examination were discussed with the patient as well as his family. He was advised to continue with her current medications and follow antireflux measures. He'll be seen in office in 3-4 weeks..
[2018-04-19 12:28] VITALS: BP 117/68; PULSE 55; RESP 20
== END 2018-04-19 13:14 | disposition home or self-care (01) ==
LOC: ORWHC2ENDO 10:43
PROVIDERS: ATTEND Internal Medicine Gastroenterology
DX: K29.50 Unspecified chronic gastritis without bleeding (principal); K21.0 Gastro-esophageal reflux disease with esophagitis; G20 Parkinson's disease; I10 Essential (primary) hypertension; I25.119 Atherosclerotic heart disease of native coronary artery with unspecified angina pectoris; Z79.82 Long term (current) use of aspirin; Z79.1 Long term (current) use of non-steroidal anti-inflammatories (NSAID); Z79.899 Other long term (current) drug therapy; Z88.8 Allergy status to other drugs, medicaments and biological substances
CPT/HCPCS: 88305; 43239; J2001; J2704

== ENCOUNTER → 2018-05-03 | Outpatient (CLI) | payer MEDICARE ==
[2018-05-03 17:27] LABS: Blood Urea Nitrogen 23 mg/dL (9-20)
--- NOTE | 2018-05-04 08:29 | CT ---
EXAMINATION TYPE: CT abdomen pelvis w con DATE OF EXAM: 05/03/2018 COMPARISON: 03/13/2017 INDICATION: Lower abdominal pain on and off x 4 months. DLP: 736.6 mGycm, Automated exposure control for dose reduction was used. CONTRAST: 100 mL of Isovue M300. Study performed with Oral Contrast TECHNIQUE: Axial images were obtained from above the diaphragm to the pubic rami in the axial plane a t 5 mm thick sections. Reconstructed images are reviewed on the computer in the coronal plane. FINDINGS: Limited CT sections are obtained the lung bases. The lung bases are clear. CT ABDOMEN: Liver: Normal Spleen: Normal Pancreas: Normal Adrenal glands: The adrenal glands are normal. Gallbladder: Normal Kidneys: No masses are evident. No hydronephrosis is present. No cysts are present. There may be a 1.5 mm calcification in the posterior upper pole left kidney. Couple calcifications measuring 0.3 an d 0.2 cm in size with the inferior pole left kidney. Delayed images were obtained through the kidneys , which remain unremarkable. Aorta: Vascular calcification is within the aorta. Inferior vena cava: Normal. CT PELVIS: Loops of bowel within the abdomen and pelvis are normal. There are loops of bowel which are incom pletely distended or lack oral contrast limiting their evaluation. Abundant fecal debris is through t he colon. Small bowel loops distended with oral contrast appear normal. Appendix: Not visualized Urinary bladder: Normal. Genitourinary structures: Prostate is not identified. Multiple surgical clips within the lower pelvis . Osseous structures: No suspicious lytic or sclerotic lesions. Facet degenerative changes present L5-S 1 and L4-5 IMPRESSIONS: 1. Nonobstructing left renal calcifications. 2. Status post prostatectomy
== END | disposition home or self-care (01) ==
LOC: RADCTMAIN 16:43
PROVIDERS: ATTEND Internal Medicine Gastroenterology
DX: N28.89 Other specified disorders of kidney and ureter (principal); R10.13 Epigastric pain; Z90.79 Acquired absence of other genital organ(s)
CPT/HCPCS: 82565; 84520; 74177; 36415; Q9967

== ENCOUNTER → 2019-01-08 | Outpatient (CLI) | payer MEDICARE ==
--- NOTE | 2019-01-09 04:14 | FL ---
EXAMINATION: Small bowel follow through DATE: 01/08/2019 CLINICAL INDICATION: 78-year-old male epigastric pain, sensation of a tight band across the upper abd omen for about a year. Bloating and fullness. COMPARISON: Correlation CT 05/03/2018 Total Fluoroscopy Time: 16 seconds. Total images: 15. 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 There is a mildly patulous loop of small bowel in the left paramedian upper abdomen measuring 3.2 cm. Moderate to large stool burden is demonstrated. Following administration of barium, serial films were carried out to 5 hours and 15 minutes. Barium i s seen to reach the colon likely at approximately the 5 hour point. Loops of jejunum and ileum are compressed and examined under fluoroscopy. Aside from the mildly patul ous proximal jejunal loops mentioned above, small bowel loops have a normal-caliber. Some of the righ t lower quadrant small bowel loops maintain a feathery mucosal appearance. There is no abnormal mucos al fold thickening or nodularity seen. No hypersecretion with barium flocculation is evident. Otherwi se, no intrinsic or extrinsic process is suspected. IMPRESSION: 1. Delayed small bowel transit time with contrast reaching the cecum at approximately 5 hours. Some d ifferential considerations include etiologies such as hypothyroidism or intestinal pseudoobstruction given the mildly patulous proximal jejunal loops measuring up to 3.2 cm. Connective tissue disorders like scleroderma are not supported by the appearance of the small bowel on this study. 2. Some of the right lower quadrant small bowel loops maintain a feathery mucosal pattern. This appar ent reversal in the fold pattern can be seen with celiac disease. However, no hypersecretion is demon strated on this study to further support this diagnosis. Clinically correlate. 3. Moderate to large stool burden.
== END ==
LOC: RADFLMAIN 08:33
PROVIDERS: ATTEND Internal Medicine Gastroenterology
DX: R10.13 Epigastric pain (principal)
CPT/HCPCS: 74250

== ENCOUNTER 2019-03-01 07:23 | Day surgery (SDC) | payer MEDICARE ==
[2019-02-27 15:50] VITALS: BMI 22.6
[2019-03-01 07:48] VITALS: RESP 16; TEMP 97.6
[2019-03-01] MEDS: LACTATED RINGERS 1,000 ML IV SCH ×2 (07:57→08:46)
[2019-03-01] MEDS ORDERED: LIDOCAINE 1% 20 ML VIAL (10MG/ML) FOR IV START INTRADERMA ONE (07:58)
[2019-03-01] MEDS ORDERED: LIDOCAINE 1% INJ 10MG/ML (20 ML MDV) ONE (08:49)
[2019-03-01] MEDS ORDERED: PROPOFOL 10 MG/ML 20 ML VIAL IV ONE (08:49)
--- NOTE | 2019-03-01 09:11 | P.PCN ---
Date of Procedure: 03/01/19 Procedure(s) Performed: BRIEF HISTORY: Patient is a 78-year-old pleasant white male, scheduled for an elective colonoscopy as a part of evaluation of abdominal bloating, abdominal discomfort and change in bowel habits for the last several months duration. PROCEDURE PERFORMED: Colonoscopy. PREOPERATIVE DIAGNOSIS: Abdominal bloating, abdominal pain and change in bowel habits. IV sedation per Anesthesia. PROCEDURE: After informed consent was obtained, the patient, was brought into the endoscopy unit. IV sedation was administered by Anesthesia under continuous monitoring. Digital rectal examination was normal. Initially the Olympus CF-160 flexible video colonoscope was then inserted in the rectum, gradually advanced into the cecum without any difficulty. Careful examination was performed as the scope was gradually being withdrawn. Ileocecal valve and the appendiceal orifice were visualized and appeared normal. Prep was excellent. Mucosa of the cecum, ascending colon, transverse colon, descending colon, sigmoid colon, and rectum appeared normal. Retroflexion was performed in the rectum and grade 2 internal hemorrhoids were seen. The patient tolerated the procedure well. IMPRESSION: Normal-appearing colon from rectum to cecum with no evidence of colitis or colorectal neoplasia . Grade 2 internal hemorrhoids RECOMMENDATIONS: Findings of this examination were discussed with the patient as well as his family. He was advised to be a high-fiber diet and take fiber supplements a regular basis and use MiraLAX as needed for the chronic constipation.
[2019-03-01 09:17] VITALS: PULSE 56
[2019-03-01 09:36] VITALS: BP 126/66
== END 2019-03-01 09:57 | disposition home or self-care (01) ==
LOC: ORWHC2ENDO 07:23
PROVIDERS: ATTEND Internal Medicine Gastroenterology
DX: K64.1 Second degree hemorrhoids (principal); R19.4 Change in bowel habit; I10 Essential (primary) hypertension; G20 Parkinson's disease; K21.9 Gastro-esophageal reflux disease without esophagitis; Z79.82 Long term (current) use of aspirin; Z79.890 Hormone replacement therapy; Z85.46 Personal history of malignant neoplasm of prostate; Z79.899 Other long term (current) drug therapy; Z88.8 Allergy status to other drugs, medicaments and biological substances
CPT/HCPCS: 45378; J2001; J2704

== ENCOUNTER → 2019-12-12 | Outpatient (CLI) | payer MEDICARE ==
[2019-12-12 09:00] LABS: Basophils % (A) 1 %; Eosinophils # (A) 0.3 k/uL (0-0.7); Eosinophils % (A) 8 %; HCT 42.3 % (39.0-53.0); HGB 13.7 gm/dL (13.0-17.5); Lymphocytes # (A) 0.9 k/uL (1.0-4.8); Lymphocytes % (A) 28 %; MCH 31.6 pg (25.0-35.0); MCHC 32.3 g/dL (31.0-37.0); MCV 97.7 fL (80.0-100.0); Mean Platelet Volume 7.6; Monocytes # (A) 0.2 k/uL (0-1.0); Monocytes % (A) 7 %; Neutrophils # (A) 1.8 k/uL (1.3-7.7); Neutrophils % (A) 55 %; Platelet Count 154 k/uL (150-450); RBC 4.33 m/uL (4.30-5.90); RDW 12.2 % (11.5-15.5); WBC 3.4 k/uL (3.8-10.6)
[2019-12-12 18:04] LABS: African American GFR (CKD) 99.9 (60.0-200.0); BUN/Creat Ratio 26.25 Ratio (12.00-20.00); Calcium 9.1 mg/dL (8.7-10.3); Carbon Dioxide 28.7 mmol/L (21.6-31.8); Chloride 105 mmol/L (96-109); Chol/HDL Ratio 2.41; Cholesterol 147 mg/dL (0-200); Glucose 90 mg/dL (70-110); Non-African American GFR(CKD) 86.2 (60.0-200.0); Potassium 4.1 mmol/L (3.5-5.5); Sodium 140 mmol/L (135-145); Total Protein 5.9 g/dL (6.2-8.2); Triglycerides <50.0 mg/dL (0.0-149.0)
[2019-12-12 18:05] LABS: ALT <8 U/L (10-49); AST 14 U/L (14-35); Albumin/Globulin Ratio 2.47 (1.60-3.17); Alkaline Phosphatase 67 U/L (41-126); Globulin 1.7 g/dL (1.6-3.3); Total Bilirubin 0.8 mg/dL (0.3-1.2)
== END | disposition home or self-care (01) ==
LOC: LABWHC1 08:25
PROVIDERS: ATTEND Family Medicine
DX: Z00.00 Encounter for general adult medical examination without abnormal findings (principal); N40.0 Benign prostatic hyperplasia without lower urinary tract symptoms; E03.9 Hypothyroidism, unspecified
CPT/HCPCS: 36415; 80053; 80061; 84153; 84443; 85025

== ENCOUNTER → 2020-05-30 | Outpatient (CLI) | payer MEDICARE ==
--- NOTE | 2020-05-30 13:48 | CT ---
EXAMINATION TYPE: CT sinus wo con DATE OF EXAM: 05/30/2020 COMPARISON: None HISTORY: Sinus congestion and drainage, worse on the right. CT DLP: 748.[address] of the paranasal sinuses was performed in the axial and coronal planes. Bone and soft tissue settings are submitted. The paranasal sinuses demonstrate normal aeration and development. There is complete opacification of the right sphenoid sinus extending into the right-sided ethmoid ai r cells. The left sphenoid sinus, left sided ethmoid air cells, bilateral maxillary sinuses and front al sinuses are all well aerated The osteal meatal units are patent bilaterally. The nasal septum is midline. No bony destructive changes are seen within the field of view. IMPRESSION: There is complete opacification of the right sphenoid sinus extending into the right-sided ethmoid ai r cells. High density mucous suggests inspissated mucus or superimposed infection.
== END | disposition home or self-care (01) ==
LOC: RADCTMAIN 13:00
PROVIDERS: ATTEND Otolaryngology
DX: J32.9 Chronic sinusitis, unspecified (principal)
CPT/HCPCS: 70486

== ENCOUNTER → 2021-03-08 | Outpatient (CLI) | payer MEDICARE ==
--- NOTE | 2021-03-08 15:04 | US ---
EXAMINATION TYPE: US thyroid st tissue head/neck DATE OF EXAM: 03/08/2021 COMPARISON: NONE CLINICAL HISTORY: E04.1 Thyroid Nodule. right thyroid nodule GLAND SIZE: Right Lobe: 4.8 x 1.5 x 1.8 cm Overall Parenchyma: homogenous Left Lobe: 3.6 x 1.2 x 1.2 cm Overall Parenchyma: homogeneous Isthmus Thickness: 0.2 cm NODULES RIGHT: # of nodules measured on right: 1 1. 1.6 X 1.1 x 1.3 cm, lower , solid , hyperechoic nodule, which is wider than tall, with ill-defin ed margins, without echogenic foci. Prior size: no prior LEFT: # of nodules measured on left: 0 ISTHMUS: # of nodules measured in the isthmus: 0 Bilateral neck scanned, no evidence of lymphadenopathy. Somewhat small slightly heterogeneous thyroid with slightly hyperechoic lower pole right thyroid nodu le as detailed above. IMPRESSION: There is TR 3 lesion lower pole right thyroid. 2017 ACR TI-RADS LEVEL: Mildly Suspicious: Follow if ? 1.5 cm at 1, 3, and 5 y *Highest TI-RADS level nodule reported
--- NOTE | 2021-03-08 16:08 | CT ---
EXAMINATION TYPE: CT sinus wo con DATE OF EXAM: 03/08/2021 COMPARISON: CT sinus study May 30, 2020 HISTORY: Chronic sinusitis Per order. CT DLP: 669 mGycm. Automated Exposure Control for Dose Reduction was Utilized. TECHNIQUE: CT scan of the sinuses is performed without contrast, axial images are obtained, coronal r eformatted images are also reviewed. FINDINGS: Persistent completely opacified barely hyperdense right sphenoid sinus without bony destruc tion. There is extension into the posterior ethmoid sinusitis image 33 redemonstrated. There is impro candace aeration in the remainder of the right-sided ethmoid sinuses from prior study. There is hypoplast ic or nonformed right frontal sinus redemonstrated. No new suspicious opacification or air-fluid lev els. Interval paranasal sinus surgery with surgically treated ostiomeatal complexes widely patent on coronal images. Visualized portion of mastoid air cells show no abnormal opacification. The globes are intact bilate rally. Visualized portion of brain parenchyma shows mild to moderate diffuse cerebral atrophy and ch ronic small vessel ischemic change. IMPRESSION: Interval paranasal sinus surgery. Interval successful treatment of majority of abnormal o pacification right ethmoid sinuses. Persistent right sphenoid sinus involvement extending into the po sterior right ethmoid sinus should be correlated with findings from prior sinus surgery. No new sinus disease identified.
== END | disposition home or self-care (01) ==
LOC: RADCTMAIN 13:34
PROVIDERS: ATTEND Otolaryngology
DX: E04.1 Nontoxic single thyroid nodule (principal); J32.9 Chronic sinusitis, unspecified
CPT/HCPCS: 36415; 70486; 76536

== ENCOUNTER → 2021-05-13 | Outpatient (CLI) | payer MEDICARE ==
[2021-05-13 15:19] LABS: Basophils # (A) 0.03 X 10*3/uL (0.00-0.10); Basophils % (A) 0.7 %; Eosinophils # (A) 0.36 X 10*3/uL (0.04-0.35); Eosinophils % (A) 8.3 %; HCT 41.4 % (39.6-50.0); HGB 13.6 g/dL (13.0-17.0); Lymphocytes # (A) 0.79 X 10*3/uL (0.90-5.00); Lymphocytes % (A) 18.2 %; MCH 32.5 pg (27.0-32.0); MCHC 32.9 g/dL (32.0-37.0); MCV 98.8 fL (80.0-97.0); Mean Platelet Volume 9.9 fL (9.5-12.2); Monocytes # (A) 0.49 X 10*3/uL (0.20-1.00); Monocytes % (A) 11.3 %; Neutrophils # (A) 2.65 X 10*3/uL (1.80-7.70); Neutrophils % (A) 61.3 %; Platelet Count 219 X 10*3/uL (140-440); RBC 4.19 X 10*6/uL (4.40-5.60); RDW 12.1 % (11.5-14.5); WBC 4.33 X 10*3/uL (4.50-10.00)
[2021-05-13 18:50] LABS: ALT <8 U/L (10-49); AST 13 U/L (14-35); African American GFR (CKD) 98.5 (60.0-200.0); Albumin/Globulin Ratio 1.95 (1.60-3.17); Alkaline Phosphatase 76 U/L (41-126); Carbon Dioxide 27.1 mmol/L (21.6-31.8); Chloride 105 mmol/L (96-109); Chol/HDL Ratio 2.58; Cholesterol 160 mg/dL (0-200); Globulin 2.1 g/dL (1.6-3.3); Glucose 85 mg/dL (70-110); LDL Cholesterol,Calculated 87.6 mg/dL (0.0-131.0); Potassium 4.2 mmol/L (3.5-5.5); Sodium 138 mmol/L (135-145); Total Bilirubin 0.7 mg/dL (0.2-1.2); Total Protein 6.2 g/dL (6.2-8.2)
== END | disposition home or self-care (01) ==
LOC: LABWHC1 09:30
PROVIDERS: ATTEND Family Medicine
DX: Z00.00 Encounter for general adult medical examination without abnormal findings (principal); N40.0 Benign prostatic hyperplasia without lower urinary tract symptoms; M11.2 Other chondrocalcinosis; E03.9 Hypothyroidism, unspecified; E78.5 Hyperlipidemia, unspecified
CPT/HCPCS: 36415; 80053; 80061; 82306; 82607; 84443; 85025

== ENCOUNTER → 2021-10-06 | Outpatient (CLI) | payer MEDICARE ==
--- NOTE | 2021-10-06 16:31 | US ---
EXAMINATION TYPE: US thyroid st tissue head/neck DATE OF EXAM: 10/06/2021 COMPARISON: 03/08/2021 CLINICAL HISTORY: 80-year-old male E04.1 Thyroid nodule. TECHNIQUE: Multiple sonographic images of the thyroid gland are obtained. FINDINGS: GLAND SIZE: Right Lobe: 5.0x1.5x1.8 cm Overall Parenchyma: homogenous Left Lobe: 3.9x1.2x1.3 cm Overall Parenchyma: homogeneous Isthmus Thickness: 0.2 cm NODULES RIGHT: # of nodules measured on right: 1 1. 1.7 X 1.3 x 1.0 cm, solid isoechoic TR3 nodule, which is wider than tall, with smooth margins, w ithout echogenic foci. Prior size: 1.6 x 1.3 x 1.1 cm LEFT: # of nodules measured on left: 0 ISTHMUS: # of nodules measured in the isthmus: 0 Bilateral neck scanned, no evidence of lymphadenopathy. IMPRESSION: Solid 1.7 cm TR3 nodule in the right lobe. Ongoing follow-up can be performed. FNA if it reaches 2.5 cm.
== END ==
LOC: RADUSWWP 14:33
PROVIDERS: ATTEND Otolaryngology
DX: E04.1 Nontoxic single thyroid nodule (principal)
CPT/HCPCS: 76536

== ENCOUNTER → 2022-05-09 | Outpatient (CLI) | payer MEDICARE ==
--- NOTE | 2022-05-09 20:01 | US ---
EXAMINATION TYPE: US thyroid st tissue head/neck DATE OF EXAM: 05/09/2022 COMPARISON: NONE CLINICAL HISTORY: E04.1 THYROID NODULE. follow up thyroid nodule GLAND SIZE: Right Lobe: 4.6 x 1.9 x 1.7 cm Overall Parenchyma: homogenous Left Lobe: 3.6 x 1.4 x 1.3 cm Overall Parenchyma: homogeneous Isthmus Thickness: 0.2 cm NODULES RIGHT: # of nodules measured on right: 1 1. 1.5 X 1.0 x 1.5 cm, lower , mixed cystic and solid, isoechoic nodule, which is wider than tall, with smooth margins, without echogenic foci. TR 2 Prior size: 1.7 x 1.0 x 1.3 cm LEFT: # of nodules measured on left: 0 ISTHMUS: # of nodules measured in the isthmus: 0 Bilateral neck scanned, no evidence of lymphadenopathy. IMPRESSION: No suspicious nodules. 2017 ACR TI-RADS LEVEL: TR-RADS 2 - Not Suspicious: No FNA *Highest TI-RADS level nodule reported
== END | disposition home or self-care (01) ==
LOC: RADUSWWP 11:50
PROVIDERS: ATTEND Otolaryngology
DX: E04.2 Nontoxic multinodular goiter (principal)
CPT/HCPCS: 76536

== ENCOUNTER 2022-07-28 16:46 | Emergency (ER) | payer MEDICARE ==
[2022-07-28 17:01] VITALS: TEMP 98.2
[2022-07-28] MEDS ORDERED: MORPHINE SULFATE 4 MG/ML SYRINGE IVP STA (17:23)
--- NOTE | 2022-07-28 18:27 | ED ---
General Adult HPI - General Chief complaint: Neck Pain/Injury Stated complaint: neck pain Time Seen by Provider: 07/28/22 17:10 Source: patient Mode of arrival: ambulatory Limitations: no limitations - History of Present Illness Initial comments: Patient is an 81-year-old male with history of Parkinson's presenting with chief complaint of neck pain. Patient has had chronic Neck pain for several months, he seen [facility] in [facility] past and was told that he had 2 ruptured discs in the neck. He has been receiving physical therapy which he states helped improve the pain. Patient states that over the past few days the pain has been worse than normal. He states that time he has a mild headache, but otherwise no associated headache. No vision or hearing changes. No nausea or vomiting. No chest pain or shortness of breath. No abdominal pain. No numbness, tingling, weakness. Patient has been taking Norcos with little relief. No new injury or recent fall. - Related Data Home Medications Medication Instructions Recorded Confirmed Aspirin 81 mg PO DAILY 05/23/15 03/01/19 Carbidopa-Levodopa 25-100 mg 2 tab PO 5XD 05/23/15 03/01/19 [Sinemet 25-100 mg] Levothyroxine Sodium [Levoxyl] 75 mcg PO HS 05/23/15 03/01/19 amLODIPine [Norvasc] 5 mg PO QAM 05/23/15 03/01/19 Acetaminophen Tab [Tylenol Tab] 500 mg PO Q6HR PRN 05/02/17 03/01/19 calcium polycarbophiL [Fibercon] 1,350 mg PO DAILY 04/17/18 03/01/19 polyethylene glycoL 3350 [Miralax] 17 gm PO DAILY 04/17/18 03/01/19 Hyoscyamine Sulfate [Hyoscyamine 0.125 - 0.25 mg SL TID PRN 02/27/19 03/01/19 Sulfate SL] Pantoprazole Sodium 40 mg PO QAM 02/27/19 03/01/19 diphenhydrAMINE [Benadryl] 25 mg PO HS PRN 02/27/19 03/01/19 Allergies Allergy/AdvReac Type Severity Reaction Status Date / Time metoclopramide [From Reglan] AdvReac extreme Verified 07/28/22 17:02 lightheadedness,nausea,"drug induced Parkinson sx" Review of Systems ROS Statement: Those systems with pertinent positive or pertinent negative responses have been documented in the HPI. ROS Other: All systems not noted in ROS Statement are negative. Past Medical History Past Medical History: Cancer, Chest Pain / Angina, GERD/Reflux, Thyroid Disorder Additional Past Medical History / Comment(s): tremors,PROSTATE CANCER,. PARKINSON'S History of Any Multi-Drug Resistant Organisms: None Reported Past Surgical History: Heart Catheterization, Joint Replacement, Prostate Surgery Additional Past Surgical History / Comment(s): BILAT TKA. PROSTATECTOMY. LT SHOULDER REPLACEMNT 2017. COLONOSOCPY Past Anesthesia/Blood Transfusion Reactions: No Reported Reaction Past Psychological History: No Psychological Hx Reported Smoking Status: Never smoker Past Alcohol Use History: Occasional Past Drug Use History: None Reported - Past Family History Mother Family Medical History: No Reported History General Exam Limitations: no limitations General appearance: alert, in no apparent distress Head exam: Present: atraumatic, normocephalic, normal inspection Eye exam: Present: normal appearance, PERRL, EOMI. Absent: scleral icterus, periorbital swelling, periorbital tenderness Pupils: Present: normal accommodation Neck exam: Present: normal inspection, tenderness (Paraspinal muscle tenderness, no vertebral body tenderness.) Respiratory exam: Present: normal lung sounds bilaterally. Absent: respiratory distress, wheezes, rales, rhonchi, stridor Cardiovascular Exam: Present: regular rate, normal rhythm, normal heart sounds. Absent: systolic murmur, diastolic murmur, rubs, gallop, clicks Neurological exam: Present: alert, oriented X3, CN II-XII intact Psychiatric exam: Present: normal affect, normal mood Skin exam: Present: warm, dry, intact, normal color. Absent: rash Course Vital Signs 07/28/22 07/28/22 16:57 20:22 Temperature 98.2 F Pulse Rate 67 56 L Respiratory 20 16 Rate Blood Pressure 118/56 168/69 O2 Sat by Pulse 98 100 Oximetry Medical Decision Making - Medical Decision Making Patient is an 81-year-old male presenting with chief complaint of neck pain. Patient has history of chronic back pain, states that it has been worsening over the past few days. Patient follows with Dr. Polanco. On examination there is no vertebral body tenderness, there is some paraspinal muscle tenderness. Patient has full range of motion, patient also has history of Parkinson's so examination is limited. The patient is given Morphine, reports improvement of pain on reassessment. X-ray show cervical spondylosis. Follow-up with PCP and Dr. Polanco. Report back to ER with any new or worsening symptoms. Discussed return parameters and answered all questions. Patient conveyed verbal understanding and agreed to the plan. I discussed this case in detail with my attending Dr. Nunez Disposition Clinical Impression: Neck pain Disposition: HOME SELF-CARE Condition: Good Instructions (If sedation given, give patient instructions): Cervical Strain (ED) Additional Instructions: Follow-up with PCP and Dr. Polanco. Report back to ER with any new or worsening symptoms. Take Motrin and Tylenol as needed for pain control. Is patient prescribed a controlled substance at d/c from ED?: No Referrals: Shaji Del Valle MD [Primary Care Provider] - 1-2 days Time of Disposition: 21:04
[2022-07-28 20:24] VITALS: BP 168/69; PULSE 56; RESP 16
--- NOTE | 2022-07-28 20:58 | XR ---
PROCEDURE: XR cervical spine comp - 6V DATE AND TIME: 07/28/2022 6:43 PM CLINICAL INDICATION: neck pain TECHNIQUE: Department protocol COMPARISON: None FINDINGS: There are moderate and marked spondylosis changes at all levels. No fracture or malalignmen t. No focal skeletal findings. The soft tissues are unremarkable. IMPRESSION: Cervical spondylosis.
== END 2022-07-28 21:34 | disposition home or self-care (01) ==
LOC: EC 16:46
DX: M54.2 Cervicalgia (principal); K21.9 Gastro-esophageal reflux disease without esophagitis; E07.9 Disorder of thyroid, unspecified; Z88.8 Allergy status to other drugs, medicaments and biological substances; Z79.82 Long term (current) use of aspirin; Z79.899 Other long term (current) drug therapy
CPT/HCPCS: 72050; 99283; 96374; J2270

== ENCOUNTER 2022-07-31 14:13 | Emergency (ER) | payer MEDICARE ==
[2022-07-31] MEDS ORDERED: MORPHINE SULFATE 4 MG/ML SYRINGE IM STA (16:10)
[2022-07-31] MEDS ORDERED: ORPHENADRINE 30 MG/ML 2 ML VIAL IM STA (16:10)
[2022-07-31] MEDS ORDERED: LIDOCAINE 5% PATCH TOPICAL SCH (16:15)
--- NOTE | 2022-07-31 16:19 | ED ---
Neck Injury/Pain HPI - General Chief Complaint: Neck Pain/Injury Stated Complaint: neck pain Time Seen by Provider: 07/31/22 16:02 Source: patient, family, RN notes reviewed, old records reviewed Mode of arrival: ambulatory Limitations: no limitations - History of Present Illness Initial Comments: This is a well-appearing 81-year-old male, alert and oriented x4, that presents with complaints of chronic neck pain. Patient does have a history of cervical spondylosis and has been seen by PT and Dr. Polanco. He also has a history of Parkinson's disease. He was seen a couple of days ago in the emergency room for similar pain and had an x-ray of his cervical spine which was negative for acute fracture. He was given morphine and states it improved the pain but the pain did come back. He states he takes Howe at home but it is not helping with his pain. His appointment is not until Monday with Dr. Del Valle and he does not feel he can tolerate the pain until then. Patient denies any trauma. No fevers. MD Complaint: neck pain -: month(s) (2) Radiation: occiput Severity: similar to prior neck pain Severity scale (1-10): 10 Consistency: constant Improves With: none, other (leaning neck forward) Worsens With: movement of neck Associated Symptoms: none Treatments Prior to Arrival: cervical collar (soft collar), other (norco) - Related Data Home Medications Medication Instructions Recorded Confirmed Aspirin 81 mg PO DAILY 05/23/15 03/01/19 Carbidopa-Levodopa 25-100 mg 2 tab PO 5XD 05/23/15 03/01/19 [Sinemet 25-100 mg] Levothyroxine Sodium [Levoxyl] 75 mcg PO HS 05/23/15 03/01/19 amLODIPine [Norvasc] 5 mg PO QAM 05/23/15 03/01/19 Acetaminophen Tab [Tylenol Tab] 500 mg PO Q6HR PRN 05/02/17 03/01/19 calcium polycarbophiL [Fibercon] 1,350 mg PO DAILY 04/17/18 03/01/19 polyethylene glycoL 3350 [Miralax] 17 gm PO DAILY 04/17/18 03/01/19 Hyoscyamine Sulfate [Hyoscyamine 0.125 - 0.25 mg SL TID PRN 02/27/19 03/01/19 Sulfate SL] Pantoprazole Sodium 40 mg PO QAM 02/27/19 03/01/19 diphenhydrAMINE [Benadryl] 25 mg PO HS PRN 02/27/19 03/01/19 Previous Rx's Medication Instructions Recorded Cyclobenzaprine [Flexeril] 5 mg PO TID PRN #15 tablet 07/31/22 Lidocaine 5% Patch [Lidoderm] 1 patch TOPICAL DAILY 14 Days #14 07/31/22 patch Allergies Allergy/AdvReac Type Severity Reaction Status Date / Time metoclopramide [From Reglan] AdvReac extreme Verified 07/31/22 15:26 lightheadedness,nausea,"drug induced Parkinson sx" Review of Systems ROS Statement: Those systems with pertinent positive or pertinent negative responses have been documented in the HPI. ROS Other: All systems not noted in ROS Statement are negative. Past Medical History Past Medical History: Cancer, Chest Pain / Angina, GERD/Reflux, Thyroid Disorder Additional Past Medical History / Comment(s): tremors,PROSTATE CANCER,. PARKINSON'S History of Any Multi-Drug Resistant Organisms: None Reported Past Surgical History: Heart Catheterization, Joint Replacement, Prostate Trung mitul Additional Past Surgical History / Comment(s): BILAT TKA. PROSTATECTOMY. LT SHOULDER REPLACEMNT 2017. COLONOSOCPY Past Anesthesia/Blood Transfusion Reactions: No Reported Reaction Past Psychological History: No Psychological Hx Reported Smoking Status: Never smoker Past Alcohol Use History: Occasional Past Drug Use History: None Reported - Past Family History Mother Family Medical History: No Reported History General Exam Limitations: no limitations General appearance: alert, in no apparent distress Head exam: Present: atraumatic, normocephalic Neck exam: Present: normal inspection, tenderness, other (muscle spasm cervical ). Absent: meningismus, lymphadenopathy, thyromegaly Expanded Neck exam: Absent: midline deformity, anterior neck swelling, tracheal deviation Respiratory exam: Present: normal lung sounds bilaterally. Absent: respiratory distress, wheezes, rales, rhonchi, stridor, accessory muscle use Cardiovascular Exam: Present: regular rate GI/Abdominal exam: Present: soft. Absent: tenderness Back exam: Present: normal inspection. Absent: tenderness, CVA tenderness (R), CVA tenderness (L), vertebral tenderness, rash noted Neurological exam: Present: alert, oriented X3 Psychiatric exam: Present: normal affect, normal mood Skin exam: Present: warm, dry, normal color. Absent: cyanosis, diaphoretic, pallor Course Vital Signs 07/31/22 07/31/22 07/31/22 15:23 18:03 18:20 Temperature 98 F 98.1 F Pulse Rate 62 68 67 Respiratory 20 18 18 Rate Blood Pressure 108/61 123/70 O2 Sat by Pulse 98 94 L 98 Oximetry Medical Decision Making - Medical Decision Making Patient presents with chronic neck pain. He was seen 3 days ago for same. X- ray was negative at that time but didn't show cervical spondylosis. Patient has been seen Dr. Polanco for his chronic pain and does have an appointment with Dr. Del Valle this Monday. Patient denies any fevers. Denies any trauma. He is currently taking Howe at home with no relief. Patient was given Toradol, morphine, Norflex and Lidoderm patch in the ER with minimal relief. He was given a prescription for Lidoderm patches and Flexeril. I did explain to patient and family that he can continue the Howe while taking the Flexeril in addition to using the Lidoderm patch until seen by his doctor this Monday. He can also use heat to relieve pain. Patient and are agreeable to this plan of care. Case was discussed with Dr. Eisenberg. Disposition Clinical Impression: Neck pain, Spondylosis of cervical spine Disposition: HOME SELF-CARE Condition: Good Instructions (If sedation given, give patient instructions): Chronic Neck Pain (DC) Additional Instructions: Continue taking your Howe in addition to using the Lidoderm patches and Flexeril for pain. Please remember to change your position slowly as these medications can cause dizziness. Keep your appointment with Dr. Del Valle Monday. Return to the emergency room with any new or concerning symptoms. Prescriptions: Cyclobenzaprine [Flexeril] 5 mg PO TID PRN #15 tablet PRN Reason: Muscle Spasm Lidocaine 5% Patch [Lidoderm] 1 patch TOPICAL DAILY 14 Days #14 patch Is patient prescribed a controlled substance at d/c from ED?: No Referrals: Shaji Del Valle MD [Primary Care Provider] - 1-2 days Time of Disposition: 16:46
[2022-07-31] MEDS ORDERED: HYDROcodone/APAP 5-325MG 1 EACH TAB PO STA (17:52)
[2022-07-31 18:08] VITALS: BP 123/70; RESP 18
[2022-07-31] MEDS ORDERED: KETOROLAC 15 MG/ML 1 ML VIAL IM STA (18:13)
[2022-07-31 18:39] VITALS: PULSE 67; TEMP 98.1
== END 2022-07-31 18:20 | disposition home or self-care (01) ==
LOC: EC 14:13
DX: M47.892 Other spondylosis, cervical region (principal); K21.9 Gastro-esophageal reflux disease without esophagitis; E07.9 Disorder of thyroid, unspecified; Z88.8 Allergy status to other drugs, medicaments and biological substances; Z79.82 Long term (current) use of aspirin; Z79.890 Hormone replacement therapy; Z79.899 Other long term (current) drug therapy
CPT/HCPCS: 99283; 96372 ×3; J2270; J2360; J1885

== ENCOUNTER 2022-08-26 16:32 | Emergency (ER) | payer MEDICARE ==
[2022-08-26 16:47] VITALS: RESP 18; TEMP 98.3
[2022-08-26] MEDS ORDERED: SODIUM CHLORIDE 0.9% 1,000 ML IV ONE (17:05)
[2022-08-26] MEDS ORDERED: MORPHINE SULFATE 4 MG/ML SYRINGE IVP STA (17:07)
--- NOTE | 2022-08-26 17:10 | ED ---
General Adult HPI - General Chief complaint: Altered Mental Status Stated complaint: AMS Time Seen by Provider: 08/26/22 16:52 Source: patient, family, RN notes reviewed Mode of arrival: wheelchair Limitations: no limitations - History of Present Illness Initial comments: Patient is a pleasant 81-year-old male presenting to the emergency department with concerns with change in mental status. Family provides majority of history. Patient has been having neck problems for approximately 8 or 9 months. Patient has been on [place] since that time. Patient recently was in the emergency department and started on [place] and Flexeril and Paxil. Patient saw her regular doctor yesterday and switched to Seroquel. Patient has been somewhat altered for the past week or 2, significantly worse since yesterday. Patient is hypersexual with . Patient is confused and having difficulty using his computer. Patient has been more restless. Patient is having hallucinations. Patient states neck discomfort is the upper neck/lower skull region. - Related Data Home Medications Medication Instructions Recorded Confirmed Aspirin 81 mg PO DAILY@0900 05/23/15 08/26/22 Carbidopa-Levodopa 25-100 mg 2 tab PO TID@0200,1800,2100 05/23/15 08/26/22 [Sinemet 25-100 mg] Levothyroxine Sodium [Levoxyl] 75 mcg PO HS@209905/23/15 08/26/22 Pantoprazole Sodium 40 mg PO BID@0900,1800 02/27/19 08/26/22 Acetaminophen Tab [Tylenol] 325 mg PO HS@2100 08/26/22 08/26/22 Acetaminophen Tab [Tylenol] 650 mg PO TID@0900,1200,1800 08/26/22 08/26/22 Carbidopa-Levodopa 25-100 mg 1 tab PO DAILY@1500 08/26/22 08/26/22 [Sinemet 25-100] Carbidopa-Levodopa 25-100 mg 1.5 tab PO TID@0600,0900,1200 08/26/22 08/26/22 [Sinemet 25-100] Cholecalciferol [Vitamin D3 (25 75 mcg PO HS@2100 08/26/22 08/26/22 Mcg = 1000 Iu)] Docusate [Colace] 200 mg PO DAILY@0600 08/26/22 08/26/22 Famotidine 20 mg PO DAILY@1600 08/26/22 08/26/22 Lidocaine 5% Patch [Lidoderm] 1 patch TOPICAL DAILY PRN 08/26/22 08/26/22 Mirabegron [Myrbetriq] 50 mg PO HS@2100 08/26/22 08/26/22 Montelukast [Singulair] 10 mg PO HS@2100 08/26/22 08/26/22 Opicapone [Ongentys] 50 mg PO HS@209908/26/22 08/26/22 QUEtiapine [SEROquel] 25 mg PO BID@0900,2100 08/26/22 08/26/22 amLODIPine [Norvasc] 2.5 mg PO DAILY@0900 08/26/22 08/26/22 Allergies Allergy/AdvReac Type Severity Reaction Status Date / Time metoclopramide [From Reglan] AdvReac extreme Verified 08/26/22 17:28 lightheadedness,nausea,"drug induced Parkinson sx" Review of Systems ROS Statement: Those systems with pertinent positive or pertinent negative responses have been documented in the HPI. ROS Other: All systems not noted in ROS Statement are negative. Constitutional: Denies: fever Eyes: Denies: eye pain ENT: Denies: ear pain Respiratory: Denies: cough Cardiovascular: Denies: chest pain Endocrine: Denies: fatigue Gastrointestinal: Denies: abdominal pain Genitourinary: Denies: dysuria Musculoskeletal: Denies: back pain Skin: Denies: rash Neurological: Reports: as per HPI Past Medical History Past Medical History: Cancer, Chest Pain / Angina, GERD/Reflux, Thyroid Disorder Additional Past Medical History / Comment(s): tremors,PROSTATE CANCER,. PARKINSON'S History of Any Multi-Drug Resistant Organisms: None Reported Past Surgical History: Heart Catheterization, Joint Replacement, Prostate Surgery Additional Past Surgical History / Comment(s): BILAT TKA. PROSTATECTOMY. LT SHOULDER REPLACEMNT 2017. COLONOSOCPY Past Anesthesia/Blood Transfusion Reactions: No Reported Reaction Past Psychological History: No Psychological Hx Reported Smoking Status: Never smoker Past Alcohol Use History: Occasional Past Drug Use History: None Reported - Past Family History Mother Family Medical History: No Reported History General Exam Limitations: no limitations General appearance: alert, other (Patient is mildly restless) Head exam: Present: atraumatic, normocephalic Eye exam: Present: normal appearance, PERRL, EOMI ENT exam: Present: mucous membranes dry Neck exam: Present: normal inspection. Absent: tenderness Respiratory exam: Present: normal lung sounds bilaterally Cardiovascular Exam: Present: regular rate, normal rhythm GI/Abdominal exam: Present: soft. Absent: tenderness Extremities exam: Present: normal inspection Neurological exam: Present: alert, oriented X3, CN II-XII intact, other (Patient does say some inappropriate things. For example he felt it very important to let me know that he likes his coffee black). Absent: motor sensory deficit Psychiatric exam: Present: normal affect, normal mood Skin exam: Present: normal color Course Vital Signs 08/26/22 08/26/22 08/26/22 16:44 20:17 21:00 Temperature 98.3 F Pulse Rate 70 68 67 Respiratory 18 16 18 Rate Blood Pressure 121/56 157/71 131/74 O2 Sat by Pulse 99 95 95 Oximetry 08/26/22 08/27/22 08/27/22 23:30 05:27 07:58 Temperature Pulse Rate 62 68 69 Respiratory 18 18 18 Rate Blood Pressure 155/79 154/68 139/84 O2 Sat by Pulse 95 98 98 Oximetry EKG Findings - EKG Comments: EKG Findings:: Sinus rhythm rate 60. [place] 174. QRS 94. QT 435. QTC 436. Norm al axis. LVH criteria. No acute ST change. Medical Decision Making - Medical Decision Making Case discussed with Dr. yeh to take patient to be evaluated by psychiatry - Lab Data Result diagrams: 08/26/22 18:21 08/26/22 18:21 Lab Results 08/26/22 08/26/22 08/26/22 Range/Units 18:21 18:21 18:21 WBC 6.2 (3.8-10.6) k/uL RBC 3.54 L (4.30-5.90) m/uL Hgb 11.3 L (13.0-17.5) gm/dL Hct 33.7 L (39.0-53.0) % MCV 95.1 (80.0-100.0) fL MCH 32.0 (25.0-35.0) pg MCHC 33.6 (31.0-37.0) g/dL RDW 11.7 (11.5-15.5) % Plt Count 228 (150-450) k/uL MPV 7.6 Neutrophils % 65 % Lymphocytes % 16 % Monocytes % 5 % Eosinophils % 12 % Basophils % 1 % Neutrophils # 4.0 (1.3-7.7) k/uL Lymphocytes # 1.0 (1.0-4.8) k/uL Monocytes # 0.3 (0-1.0) k/uL Eosinophils # 0.8 H (0-0.7) k/uL Basophils # 0.0 (0-0.2) k/uL PT 11.5 (9.0-12.0) sec INR 1.1 (<1.2) APTT 25.7 (22.0-30.0) sec Sodium (137-145) mmol/L Potassium (3.5-5.1) mmol/L Chloride (98-107) mmol/L Carbon Dioxide (22-30) mmol/L Anion Gap mmol/L BUN (9-20) mg/dL Creatinine (0.66-1.25) mg/dL Est GFR (CKD-EPI)AfAm (>60 ml/min/1.73 sqM) Est GFR (CKD-EPI)NonAf (>60 ml/min/1.73 sqM) Glucose (74-99) mg/dL POC Glucose (mg/dL) (70-110) mg/dL POC Glu Manager [place] Calcium (8.4-10.2) mg/dL Total Bilirubin (0.2-1.3) mg/dL AST (17-59) U/L ALT (4-49) U/L Alkaline Phosphatase (38-126) U/L Troponin I (0.000-0.034) ng/mL Total Protein (6.3-8.2) g/dL Albumin (3.5-5.0) g/dL Urine Color Urine Appearance (Clear) Urine pH (5.0-8.0) Ur Specific [place] (1.001-1.035) Urine Protein (Negative) Urine Glucose (UA) (Negative) Urine Ketones (Negative) Urine Blood (Negative) Urine Nitrite (Negative) Urine Bilirubin (Negative) Urine Urobilinogen (<2.0) mg/dL Ur Leukocyte Esterase (Negative) Urine RBC (0-5) /hpf Urine WBC (0-5) /hpf Urine Mucus (None) /hpf Urine Opiates Screen Not Detected (NotDetected) Ur Oxycodone Screen Not Detected (NotDetected) Urine Methadone Screen Not Detected (NotDetected) Ur Propoxyphene Screen Not Detected (NotDetected) Ur Barbiturates Screen Not Detected (NotDetected) U Tricyclic Antidepress Detected H (NotDetected) Ur Phencyclidine Scrn Not Detected (NotDetected) Ur Amphetamines Screen Not Detected (NotDetected) U Methamphetamines Scrn Not Detected (NotDetected) U Benzodiazepines Scrn Not Detected (NotDetected) Urine Cocaine Screen Not Detected (NotDetected) U Marijuana (THC) Screen Not Detected (NotDetected) Serum Alcohol mg/dL 08/26/22 08/26/22 08/26/22 Range/Units 18:21 18:21 18:21 WBC (3.8-10.6) k/uL RBC (4.30-5.90) m/uL Hgb (13.0-17.5) gm/dL Hct (39.0-53.0) % MCV (80.0-100.0) fL MCH (25.0-35.0) pg MCHC (31.0-37.0) g/dL RDW (11.5-15.5) % Plt Count (150-450) k/uL MPV Neutrophils % % Lymphocytes % % Monocytes % % Eosinophils % % Basophils % % Neutrophils # (1.3-7.7) k/uL Lymphocytes # (1.0-4.8) k/uL Monocytes # (0-1.0) k/uL Eosinophils # (0-0.7) k/uL Basophils # (0-0.2) k/uL PT (9.0-12.0) sec INR (<1.2) APTT (22.0-30.0) sec Sodium 133 L (137-145) mmol/L Potassium 4.3 (3.5-5.1) mmol/L Chloride 99 (98-107) mmol/L Carbon Dioxide 24 (22-30) mmol/L Anion Gap 10 mmol/L BUN 23 H (9-20) mg/dL Creatinine 0.69 (0.66-1.25) mg/dL Est GFR (CKD-EPI)AfAm >90 (>60 ml/min/1.73 sqM) Est GFR (CKD-EPI)NonAf 90 (>60 ml/min/1.73 sqM) Glucose 85 (74-99) mg/dL POC Glucose (mg/dL) (70-110) mg/dL POC Glu Manager [place] Calcium 9.1 (8.4-10.2) mg/dL Total Bilirubin 0.7 (0.2-1.3) mg/dL AST 23 (17-59) U/L ALT 8 (4-49) U/L Alkaline Phosphatase 79 (38-126) U/L Troponin I <0.012 (0.000-0.034) ng/mL Total Protein 6.1 L (6.3-8.2) g/dL Albumin 3.7 (3.5-5.0) g/dL Urine Color Yellow Urine Appearance Clear (Clear) Urine pH 6.0 (5.0-8.0) Ur Specific [place] 1.016 (1.001-1.035) Urine Protein Negative (Negative) Urine Glucose (UA) Negative (Negative) Urine Ketones Negative (Negative) Urine Blood Small H (Negative) Urine Nitrite Negative (Negative) Urine Bilirubin Negative (Negative) Urine Urobilinogen <2.0 (<2.0) mg/dL Ur Leukocyte Esterase Negative (Negative) Urine RBC 21 H (0-5) /hpf Urine WBC 2 (0-5) /hpf Urine Mucus Rare H (None) /hpf Urine Opiates Screen (NotDetected) Ur Oxycodone Screen (NotDetected) Urine Methadone Screen (NotDetected) Ur Propoxyphene Screen (NotDetected) Ur Barbiturates Screen (NotDetected) U Tricyclic Antidepress (NotDetected) Ur Phencyclidine Scrn (NotDetected) Ur Amphetamines Screen (NotDetected) U Methamphetamines Scrn (NotDetected) U Benzodiazepines Scrn (NotDetected) Urine Cocaine Screen (NotDetected) U Marijuana (THC) Screen (NotDetected) Serum Alcohol <10 mg/dL 08/26/22 Range/Units 20:20 WBC (3.8-10.6) k/uL RBC (4.30-5.90) m/uL Hgb (13.0-17.5) gm/dL Hct (39.0-53.0) % MCV (80.0-100.0) fL MCH (25.0-35.0) pg MCHC (31.0-37.0) g/dL RDW (11.5-15.5) % Plt Count (150-450) k/uL MPV Neutrophils % % Lymphocytes % % Monocytes % % Eosinophils % % Basophils % % Neutrophils # (1.3-7.7) k/uL Lymphocytes # (1.0-4.8) k/uL Monocytes # (0-1.0) k/uL Eosinophils # (0-0.7) k/uL Basophils # (0-0.2) k/uL PT (9.0-12.0) sec INR (<1.2) APTT (22.0-30.0) sec Sodium (137-145) mmol/L Potassium (3.5-5.1) mmol/L Chloride (98-107) mmol/L Carbon Dioxide (22-30) mmol/L Anion Gap mmol/L BUN (9-20) mg/dL Creatinine (0.66-1.25) mg/dL Est GFR (CKD-EPI)AfAm (>60 ml/min/1.73 sqM) Est GFR (CKD-EPI)NonAf (>60 ml/min/1.73 sqM) Glucose (74-99) mg/dL POC Glucose (mg/dL) 79 (70-110) mg/dL POC Glu Manager [place] Jo [place]enzuela Calcium (8.4-10.2) mg/dL Total Bilirubin (0.2-1.3) mg/dL AST (17-59) U/L ALT (4-49) U/L Alkaline Phosphatase (38-126) U/L Troponin I (0.000-0.034) ng/mL Total Protein (6.3-8.2) g/dL Albumin (3.5-5.0) g/dL Urine Color Urine Appearance (Clear) Urine pH (5.0-8.0) Ur Specific [place] (1.001-1.035) Urine Protein (Negative) Urine Glucose (UA) (Negative) Urine Ketones (Negative) Urine Blood (Negative) Urine Nitrite (Negative) Urine Bilirubin (Negative) Urine Urobilinogen (<2.0) mg/dL Ur Leukocyte Esterase (Negative) Urine RBC (0-5) /hpf Urine WBC (0-5) /hpf Urine Mucus (None) /hpf Urine Opiates Screen (NotDetected) Ur Oxycodone Screen (NotDetected) Urine Methadone Screen (NotDetected) Ur Propoxyphene Screen (NotDetected) Ur Barbiturates Screen (NotDetected) U Tricyclic Antidepress (NotDetected) Ur Phencyclidine Scrn (NotDetected) Ur Amphetamines Screen (NotDetected) U Methamphetamines Scrn (NotDetected) U Benzodiazepines Scrn (NotDetected) Urine Cocaine Screen (NotDetected) U Marijuana (THC) Screen (NotDetected) Serum Alcohol mg/dL - Radiology Data Radiology results: report reviewed (CT brain and C-spine does not show acute process. Some spondylitic changes. Atrophy.), image reviewed (Chest x-ray shows no acute process) Disposition Clinical Impression: Altered mental status Disposition: HOME SELF-CARE Instructions (If sedation given, give patient instructions): Parkinson Disease (ED) Is patient prescribed a controlled substance at d/c from ED?: No Referrals: Shaji Del Valle MD [Primary Care Provider] - 1-2 days
[2022-08-26 18:37] LABS: Appearance,Urine Clear (Clear); Basophils % (A) 1 %; Bilirubin,Urine Negative (Negative); Blood,Urine Small (Negative); Color,Urine Yellow; Eosinophils # (A) 0.8 k/uL (0-0.7); Eosinophils % (A) 12 %; Glucose,Urine (UA) Negative (Negative); HCT 33.7 % (39.0-53.0); HGB 11.3 gm/dL (13.0-17.5); Ketones,Urine Negative (Negative); Leukocyte Esterase,Urine Negative (Negative); Lymphocytes % (A) 16 %; MCHC 33.6 g/dL (31.0-37.0); MCV 95.1 fL (80.0-100.0); Mean Platelet Volume 7.6; Monocytes # (A) 0.3 k/uL (0-1.0); Monocytes % (A) 5 %; Mucus,Urine Rare /hpf; Neutrophils % (A) 65 %; Nitrite,Urine Negative (Negative); Platelet Count 228 k/uL (150-450); Protein,Urine Negative (Negative); RBC 3.54 m/uL (4.30-5.90); RBC,Urine 21 /hpf (0-5); RDW 11.7 % (11.5-15.5); Specific Gravity,Urine 1.016 (1.001-1.035); Urobilinogen,Urine <2.0 mg/dL (<2.0); WBC 6.2 k/uL (3.8-10.6); WBC,Urine 2 /hpf (0-5)
[2022-08-26 18:46] LABS: ALT 8 U/L (4-49); AST 23 U/L (17-59); African American GFR (CKD) >90 (>60 ml/min/1.73 sqM); Albumin 3.7 g/dL (3.5-5.0); Alcohol <10 mg/dL; Alkaline Phosphatase 79 U/L (38-126); Anion Gap 10 mmol/L; Blood Urea Nitrogen 23 mg/dL (9-20); Calcium 9.1 mg/dL (8.4-10.2); Carbon Dioxide 24 mmol/L (22-30); Chloride 99 mmol/L (98-107); Glucose 85 mg/dL (74-99); Non-African American GFR(CKD) 90 (>60 ml/min/1.73 sqM); Potassium 4.3 mmol/L (3.5-5.1); Sodium 133 mmol/L (137-145); Total Bilirubin 0.7 mg/dL (0.2-1.3); Total Protein 6.1 g/dL (6.3-8.2)
[2022-08-26 18:47] LABS: INR 1.1 (<1.2); Partial Thromboplastin Time 25.7 sec (22.0-30.0); Prothrombin Time 11.5 sec (9.0-12.0)
[2022-08-26 18:49] LABS: Amphetamine Screen,Urine Not Detected (NotDetected); Barbiturate Screen,Urine Not Detected (NotDetected); Benzodiazepines Screen,Urine Not Detected (NotDetected); Cocaine Screen,Urine Not Detected (NotDetected); Methadone Screen, Urine Not Detected (NotDetected); Opiate Screen,Urine Not Detected (NotDetected); Oxycodone Screen, Urine Not Detected (NotDetected); Phencyclidine Screen,Urine Not Detected (NotDetected); Tricyclic Antidepressant,Urine Detected (NotDetected); Urn Cannabinoid Scrn Not Detected (NotDetected)
--- NOTE | 2022-08-26 19:17 | XR ---
EXAMINATION TYPE: XR chest 2V DATE OF EXAM: 08/26/2022 COMPARISON: NONE HISTORY: Chest pain TECHNIQUE: 2 views FINDINGS: Heart is normal. Lungs are clear of infiltrate. No heart failure. There are no hilar masses . The bony thorax is intact. Pulmonary vascularity is normal. IMPRESSION: Normal chest.
--- NOTE | 2022-08-26 19:42 | CT ---
EXAMINATION TYPE: CT brain taiwo wade DATE OF EXAM: 08/26/2022 COMPARISON: None HISTORY: AMS, neck pain CT DLP: 1419.8 mGycm Automated exposure control for dose reduction was used. Images of the brain and cervical spine obtained with no contrast. There is cerebral cortical atrophy. There is no mass effect or midline shift. No sign of intracranial hemorrhage. The calvarium is intact. There is normal aeration of the mastoid sinuses. The cervical vertebra have normal alignment. Disc spaces are fairly normal for age. There is spurring of the endplates of C4-C7. There is hypertrophic multilevel mild cervical facet arthropathy. No comp ression fracture. No subluxation. IMPRESSION: Cerebral atrophy. No acute intracranial abnormality. Mild multilevel cervical spondylotic changes. No fracture seen.
[2022-08-26 20:22] LABS: Glucose,Whole Blood 79 mg/dL (70-110)
[2022-08-27 08:00] VITALS: BP 139/84; PULSE 69
== END 2022-08-27 08:00 | disposition home or self-care (01) ==
LOC: EC 16:32
DX: R41.82 Altered mental status, unspecified (principal); K21.9 Gastro-esophageal reflux disease without esophagitis; E07.9 Disorder of thyroid, unspecified; Z88.8 Allergy status to other drugs, medicaments and biological substances; Z79.82 Long term (current) use of aspirin; Z79.899 Other long term (current) drug therapy
CPT/HCPCS: 36415; 93005; 80053; 84484; 85025; 85610; 85730; 81001; 80306; 71046; 72125; 70450; 99285; 96374; 96361 ×8; G0480; J2270; 80320

== ENCOUNTER → 2023-04-19 | Outpatient (CLI) | payer MEDICARE ==
--- NOTE | 2023-04-19 18:52 | US ---
EXAMINATION TYPE: US thyroid st tissue head/neck DATE OF EXAM: 04/19/2023 COMPARISON: 05/09/2022 CLINICAL INDICATION: Male, 82 years old with history of E04.1 NONTOXIC SINGLE THYROID NODULE; Right t hyroid nodule GLAND SIZE: Right Lobe: 5.0 x 1.7 x 2.0 cm Overall Parenchyma: heterogenous Left Lobe: 3.1 x 1.2 x 1.1 cm Overall Parenchyma: heterogenous Isthmus Thickness: 1.9 cm NODULES RIGHT: # of nodules measured on right: 1 1. 1.5 X 1.1 x 1.5 cm, lower medial, solid or almost completely solid, isoechoic TR 3 nodule, which is wider than tall, with ill-defined margins, without echogenic foci. Prior size: 1.5 x 1.0 x 1.5 cm LEFT: # of nodules measured on left: 0 ISTHMUS: # of nodules measured in the isthmus: 0 Bilateral neck scanned, no evidence of lymphadenopathy. IMPRESSION: A solitary TR3 nodule in the right lobe measuring 1.5 cm remains unchanged. Continue to follow. FNA i f it reaches 2.5 cm.
== END | disposition home or self-care (01) ==
LOC: RADUSWWP 13:12
PROVIDERS: ATTEND Otolaryngology
DX: E04.1 Nontoxic single thyroid nodule (principal)
CPT/HCPCS: 76536

== ENCOUNTER 2023-05-28 01:56 | Emergency (ER) | payer MEDICARE ==
[2023-05-28] MEDS ORDERED: PANTOPRAZOLE 40 MG/10 ML VIAL IVP STA (02:01)
[2023-05-28] MEDS ORDERED: SODIUM CHLORIDE 0.9% 1,000 ML IV STA ×3 (02:01→03:21)
[2023-05-28] MEDS ORDERED: ONDANSETRON 4 MG/2 ML VIAL IVP STA (02:01)
[2023-05-28] MEDS ORDERED: MORPHINE SULFATE 4 MG/ML SYRINGE IVP STA ×2 (02:02→04:12)
--- NOTE | 2023-05-28 02:07 | ED ---
General Adult HPI - General Stated complaint: Abdominal Pain Time Seen by Provider: 05/28/23 02:01 Source: patient, EMS, RN notes reviewed, old records reviewed - History of Present Illness Initial comments: Patient is an 82-year-old male with past month history remarkable for Parkinson's disease, cancer, chest pains, thyroid disorder, who presents emergency Department complaining of abdominal discomfort. Patient has a hard t juanita describing a bit describes as a tightness across his abdomen. Initially sinus lower abdomen now says it is across his upper abdomen. Denies any nausea or vomiting. Denies any change in stooling. States he last had a bowel movement today and also had one yesterday and was normal but somewhat foul- smelling. Denies any blood thinner usage. Denies any blood from his stooling. It is brown in color. He has no urinary complaints. Denies any chest pain or shortness of breath. Denies any fevers or cough. Has no other acute complaints at this time. Presents for further evaluation at this time.Patient states that he has shortness of breath but it is secondary to the pain. Pain comes and goes. Has a poor time describing it other than tightness. - Related Data Home Medications Medication Instructions Recorded Confirmed Aspirin 81 mg PO DAILY@0900 05/23/15 08/26/22 Carbidopa-Levodopa 25-100 mg 2 tab PO TID@0200,1800,209905/23/15 08/26/22 [Sinemet 25-100 mg] Levothyroxine Sodium [Levoxyl] 75 mcg PO HS@209905/23/15 08/26/22 Pantoprazole Sodium 40 mg PO BID@0900,1800 02/27/19 08/26/22 Acetaminophen Tab [Tylenol] 325 mg PO HS@209908/26/22 08/26/22 Acetaminophen Tab [Tylenol] 650 mg PO TID@0900,1200,1800 08/26/22 08/26/22 Carbidopa-Levodopa 25-100 mg 1 tab PO DAILY@1500 08/26/22 08/26/22 [Sinemet 25-100] Carbidopa-Levodopa 25-100 mg 1.5 tab PO TID@0600,0900,1200 08/26/22 08/26/22 [Sinemet 25-100] Cholecalciferol [Vitamin D3 (25 75 mcg PO HS@2100 08/26/22 08/26/22 Mcg = 1000 Iu)] Docusate [Colace] 200 mg PO DAILY@0600 08/26/22 08/26/22 Famotidine 20 mg PO DAILY@1600 08/26/22 08/26/22 Lidocaine 5% Patch [Lidoderm] 1 patch TOPICAL DAILY PRN 08/26/22 08/26/22 Mirabegron [Myrbetriq] 50 mg PO HS@209908/26/22 08/26/22 Montelukast [Singulair] 10 mg PO HS@2100 08/26/22 08/26/22 Opicapone [Ongentys] 50 mg PO HS@2100 08/26/22 08/26/22 QUEtiapine [SEROquel] 25 mg PO BID@0900,2100 08/26/22 08/26/22 amLODIPine [Norvasc] 2.5 mg PO DAILY@0900 08/26/22 08/26/22 Allergies Allergy/AdvReac Type Severity Reaction Status Date / Time metoclopramide [From Reglan] AdvReac extreme Verified 08/26/22 17:28 lightheadedness,nausea,"drug induced Parkinson sx" Review of Systems ROS Statement: Those systems with pertinent positive or pertinent negative responses have been documented in the HPI. Review of Systems: CONST: Denies fever EYES: Denies blurry vision ENT: Denies nasal congestion C/V: Denies Chest pain RESP: Denies shortness of breath GI: Endorses abdominal pain : Denies dysuria SKIN: Denies rash. MSK: Denies joint pain. NEURO: Denies headache ROS Other: All systems not noted in ROS Statement are negative. Past Medical History Past Medical History: Cancer, Chest Pain / Angina, GERD/Reflux, Thyroid Disorder Additional Past Medical History / Comment(s): tremors,PROSTATE CANCER,. PARKINSON'S History of Any Multi-Drug Resistant Organisms: None Reported Past Surgical History: Heart Catheterization, Joint Replacement, Prostate Surgery Additional Past Surgical History / Comment(s): BILAT TKA. PROSTATECTOMY. LT SHOULDER REPLACEMNT 2017. COLONOSOCPY Past Anesthesia/Blood Transfusion Reactions: No Reported Reaction Past Psychological History: No Psychological Hx Reported Smoking Status: Never smoker Past Alcohol Use History: Occasional Past Drug Use History: None Reported - Past Family History Mother Family Medical History: No Reported History General Exam - General Exam Comments Initial Comments: General: Appears in acute distress from abd pain HEAD: Normal with no signs of head trauma. EYES: PERRLA, EOMI, conjunctiva normal, no discharge. ENT: Hearing grossly intact, normal oropharynx. RESPIRATORY: Clear breath sounds bilaterally. No wheezes, rales, or rhonchi. C/V: Regular rate and rhythm. S1 and S2 auscultated, no edema, peripheral pulses 2+ and intact throughout ABD: Abdomen is distended, with generalized tenderness to palpation. No guarding. No rebound tenderness. No peritoneal signs. EXT: Normal range of motion, no obvious deformity SKIN: Nonspecific rash of unknown duration located over her lower extremities. NEURO: Alert and oriented 4. No focal deficits. Course Vital Signs 05/28/23 05/28/23 05/28/23 02:02 02:03 02:20 Temperature 96.8 F L Pulse Rate 70 70 73 Respiratory 25 H 20 26 H Rate Blood Pressure 103/69 97/62 O2 Sat by Pulse 99 99 99 Oximetry 05/28/23 05/28/23 05/28/23 02:40 02:50 03:02 Temperature Pulse Rate 96 90 Respiratory 30 H 20 Rate Blood Pressure 140/80 145/87 112/84 O2 Sat by Pulse 96 97 Oximetry 05/28/23 05/28/23 05/28/23 03:26 04:43 05:32 Temperature Pulse Rate 93 84 73 Respiratory 18 Rate Blood Pressure 136/71 137/78 144/88 O2 Sat by Pulse 97 97 100 Oximetry Medical Decision Making - Medical Decision Making Was pt. sent in by a medical professional or institution (, PA, HARDWARE TRAINER, urgent care, hospital, or halfway...) When possible be specific @ -No Did you speak to anyone other than the patient for history (EMS, parent, family, police, friend...)? What history was obtained from this source @ -Patient's states the patient has not been having flatulence which is normal for him. Not passing gas. Did you review nursing and triage notes (agree or disagree)? Why? @ -I reviewed and agree with nursing and triage notes Were old charts reviewed (outside hosp., previous admission, EMS record, old EKG, old radiological studies, urgent care reports/EKG's, halfway records)? Report findings @ -Reviewed previous CT imaging from 2018. Differential Diagnosis (chest pain, altered mental status, abdominal pain women, abdominal pain men, vaginal bleeding, weakness, fever, dyspnea, syncope, headache, dizziness, GI bleed, back pain, seizure, CVA, palpatations, mental health, musculoskeletal)? @ -Differential Abdominal Pain Men: Appendicitis, cholecystitis, diverticulosis, ischemic bowel, pancreatitis, hepatitis, UTI, gastroenteritis, AAA, incarcerated hernia, bowel obstruction, constipation, inflammatory bowel, hepatitis, peptic ulcer disease, splenic infarction, perforated viscus, testicular torsion, this is not meant to be an all-inclusive list EKG interpreted by me (3pts min.). @ -As above X-rays interpreted by me (1pt min.). @ -Chest x-ray reveals no obvious acute cardio primary process. Repeat chest x-ray show unsuccessful attempts at NG tube placement. It was removed. CT interpreted by me (1pt min.). @ -CT was obtained and revealed no evidence of aortic injury but did show findings concerning for ischemic bowel, specifically ischemic stomach. Reading was conveyed to me via radiology. No concern for small bowel obstruction but is concerning for air in the stomach wall as well as a large amount of intraluminal air in the bowels likely from ischemic stomach. U/S interpreted by me (1pt. min.). @ -None done What testing was considered but not performed or refused? (CT, X-rays, U/S, labs)? Why? @ -None What meds were considered but not given or refused? Why? @ -None Did you discuss the management of the patient with other professionals (professionals i.e. , PA, HARDWARE TRAINER, lab, RT, psych nurse, social and political studies professor, manager telecom, teacher, chief security officer, director of casework)? Give summary @ -Discussed case with Dr. Parra of Gen. surgery who recommended transfer to higher level of care. Discussed case with ER physician Dr. Mckeon at [facility] who accepted the transfer. They spoke with the general surgeon Dr. Oneill who accepted the transfer. Was smoking cessation discussed for >3mins.? @ -No Was critical care preformed (if so, how long)? @ -Yes, 42 minutes. Were there social determinants of health that impacted care today? How? (Homelessness, low income, unemployed, alcoholism, drug addiction, transportation, low edu. Level, literacy, decrease access to med. care, halfway, rehab)? @ -No Was there de-escalation of care discussed even if they declined (Discuss DNR or withdrawal of care, Hospice)? DNR status @ -No What co-morbidities impacted this encounter? (DM, HTN, Smoking, COPD, CAD, Cancer, CVA, ARF, Chemo, Hep., AIDS, mental health diagnosis, sleep apnea, morbid obesity)? @ -None Was patient admitted / discharged? Hospital course, mention meds given and route, prescriptions, significant lab abnormalities, going to OR and other pertinent info. @ -Based on the patient's presentation and physical exam, we will obtain abdominal workup including CT imaging of the abdomen and pelvis. Patient was in agreement with this plan. He'll be symptomatically treated with IV fentanyl, Zofran, Protonix, fluids. Vital signs within acceptable limits. Patient responded well to IV fluids. Labs are within acceptable limits. Lactic acid is normal. No leukocytosis. There are multiple attempts to pass an NG tube initially as it did appear to be a small bowel obstruction which were unsuccessful. This was stopped after multiple unsuccessful attempts.Imaging remarkable for concerning signs of ischemic stomach and ischemic bowel. Patient was placed on IV vancomycin and Zosyn at this time. Blood cultures were obtained and sent. Patient is receiving IV fluids. Patient is also receiving IV morphine when necessary. I updated the patient. He is still in pain. Vital signs are within except for limits at this time. I did discuss the case with our on-call surgeon, Dr. Parra who recommended transfer to a higher level of care, due to the ischemic stomach. I updated patient as well as patient's and they were in agreement with this plan. Patient be transferred to [facility] at the request. I spoke with Dr. Mike Thibodeaux of the ED who accepted the transfer. I spoke with the general surgeon Dr. Oneill who was in agreement with the transfer. Undiagnosed new problem with uncertain prognosis? @ -No Drug Therapy requiring intensive monitoring for toxicity (Heparin, Nitro, Insulin, Cardizem)? @ -No Were any procedures done? @ -No Diagnosis/symptom? @ -Abdominal pain, ischemic bowel, ischemic stomach Acute, or Chronic, or Acute on Chronic? @ -Acute Uncomplicated (without systemic symptoms) or Complicated (systemic symptoms)? @ -Complicated Side effects of treatment? @ -none Exacerbation, Progression, or Severe Exacerbation] @ -no Poses a threat to life or bodily function? @ -Yes. - Lab Data Result diagrams: 05/28/23 02:12 05/28/23 02:12 Lab Results 05/28/23 05/28/23 05/28/23 Range/Units 02:12 02:12 02:12 WBC 8.2 (3.8-10.6) k/uL RBC 4.41 (4.30-5.90) m/uL Hgb 14.0 (13.0-17.5) gm/dL Hct 43.5 (39.0-53.0) % MCV 98.7 (80.0-100.0) fL MCH 31.7 (25.0-35.0) pg MCHC 32.1 (31.0-37.0) g/dL RDW 12.6 (11.5-15.5) % Plt Count 212 (150-450) k/uL MPV 7.8 Neutrophils % 90 % Lymphocytes % 6 % Monocytes % 2 % Eosinophils % 1 % Basophils % 0 % Neutrophils # 7.4 (1.3-7.7) k/uL Lymphocytes # 0.5 L (1.0-4.8) k/uL Monocytes # 0.2 (0-1.0) k/uL Eosinophils # 0.1 (0-0.7) k/uL Basophils # 0.0 (0-0.2) k/uL PT 11.1 (9.0-12.0) sec INR 1.1 (<1.2) APTT 24.1 (22.0-30.0) sec Sodium 133 L (137-145) mmol/L Potassium 4.0 (3.5-5.1) mmol/L Chloride 101 (98-107) mmol/L Carbon Dioxide 21 L (22-30) mmol/L Anion Gap 11 mmol/L BUN 37 H (9-20) mg/dL Creatinine 0.93 (0.66-1.25) mg/dL Est GFR (CKD-EPI)AfAm 89 (>60 ml/min/1.73 sqM) Est GFR (CKD-EPI)NonAf 77 (>60 ml/min/1.73 sqM) Glucose 133 H (74-99) mg/dL Plasma Lactic Acid Matteo (0.7-2.0) mmol/L Calcium 8.8 (8.4-10.2) mg/dL Total Bilirubin 1.0 (0.2-1.3) mg/dL AST 20 (17-59) U/L ALT 10 (4-49) U/L Alkaline Phosphatase 73 (38-126) U/L Total Protein 6.6 (6.3-8.2) g/dL Albumin 3.9 (3.5-5.0) g/dL Amylase 53 (30-110) U/L Lipase 26 (23-300) U/L 05/28/23 Range/Units 02:12 WBC (3.8-10.6) k/uL RBC (4.30-5.90) m/uL Hgb (13.0-17.5) gm/dL Hct (39.0-53.0) % MCV (80.0-100.0) fL MCH (25.0-35.0) pg MCHC (31.0-37.0) g/dL RDW (11.5-15.5) % Plt Count (150-450) k/uL MPV Neutrophils % % Lymphocytes % % Monocytes % % Eosinophils % % Basophils % % Neutrophils # (1.3-7.7) k/uL Lymphocytes # (1.0-4.8) k/uL Monocytes # (0-1.0) k/uL Eosinophils # (0-0.7) k/uL Basophils # (0-0.2) k/uL PT (9.0-12.0) sec INR (<1.2) APTT (22.0-30.0) sec Sodium (137-145) mmol/L Potassium (3.5-5.1) mmol/L Chloride (98-107) mmol/L Carbon Dioxide (22-30) mmol/L Anion Gap mmol/L BUN (9-20) mg/dL Creatinine (0.66-1.25) mg/dL Est GFR (CKD-EPI)AfAm (>60 ml/min/1.73 sqM) Est GFR (CKD-EPI)NonAf (>60 ml/min/1.73 sqM) Glucose (74-99) mg/dL Plasma Lactic Acid Matteo 1.6 (0.7-2.0) mmol/L Calcium (8.4-10.2) mg/dL Total Bilirubin (0.2-1.3) mg/dL AST (17-59) U/L ALT (4-49) U/L Alkaline Phosphatase (38-126) U/L Total Protein (6.3-8.2) g/dL Albumin (3.5-5.0) g/dL Amylase (30-110) U/L Lipase (23-300) U/L - EKG Data -: EKG Interpreted by Me EKG Comments: 12-lead Electrocardiogram Interpretation Note EKG was reviewed and interpreted by myself. 12-lead ECG performed at 0220 to is interpreted by me as revealing normal sinus rhythm at a rate of 70 beats per minute. [place] is normal. VA interval is 172 ms, QRS duration is 96 ms, QTc is 427 ms.. There were no ST or T wave abnormalities to suggest myocardial ischemia or injury. R wave progression across the precordium was satisfactory. By my interpretation this EKG is non-diagnostic for acute ischemia. Critical Care Time Critical Care Time: Yes Total Critical Care Time: 42 Disposition Clinical Impression: Ischemic bowel disease Disposition: OTHER INSTITUTION NOT DEFINED Condition: Serious Referrals: None,Stated [REFERRING] - 1-2 days Time of Disposition: 05:02 - Out of Hospital Transfer - Req. Specs Out of Hospital Transfer - Requested Specifics: Other Emergency Center (transfer to [facility] for higher level of care.)
[2023-05-28] MEDS ORDERED: fentaNYL (PF) 50 MCG/ML 2 ML AMP IVP STA ×2 (02:08→02:52)
[2023-05-28 02:28] VITALS: TEMP 96.8
[2023-05-28 02:45] LABS: Basophils % (A) 0 %; Eosinophils # (A) 0.1 k/uL (0-0.7); Eosinophils % (A) 1 %; HCT 43.5 % (39.0-53.0); Lymphocytes # (A) 0.5 k/uL (1.0-4.8); Lymphocytes % (A) 6 %; MCH 31.7 pg (25.0-35.0); MCHC 32.1 g/dL (31.0-37.0); MCV 98.7 fL (80.0-100.0); Mean Platelet Volume 7.8; Monocytes # (A) 0.2 k/uL (0-1.0); Monocytes % (A) 2 %; Neutrophils # (A) 7.4 k/uL (1.3-7.7); Neutrophils % (A) 90 %; Platelet Count 212 k/uL (150-450); RBC 4.41 m/uL (4.30-5.90); RDW 12.6 % (11.5-15.5); WBC 8.2 k/uL (3.8-10.6)
[2023-05-28 02:58] LABS: INR 1.1 (<1.2); Partial Thromboplastin Time 24.1 sec (22.0-30.0); Prothrombin Time 11.1 sec (9.0-12.0)
[2023-05-28 03:04] LABS: ALT 10 U/L (4-49); AST 20 U/L (17-59); African American GFR (CKD) 89 (>60 ml/min/1.73 sqM); Albumin 3.9 g/dL (3.5-5.0); Alkaline Phosphatase 73 U/L (38-126); Amylase 53 U/L (30-110); Anion Gap 11 mmol/L; Blood Urea Nitrogen 37 mg/dL (9-20); Calcium 8.8 mg/dL (8.4-10.2); Carbon Dioxide 21 mmol/L (22-30); Chloride 101 mmol/L (98-107); Glucose 133 mg/dL (74-99); Lipase 26 U/L (23-300); Non-African American GFR(CKD) 77 (>60 ml/min/1.73 sqM); Sodium 133 mmol/L (137-145); Total Protein 6.6 g/dL (6.3-8.2)
[2023-05-28] MEDS ORDERED: SODIUM CHLORIDE 0.9% 1,000 ML IV ONE (03:08)
[2023-05-28 03:27] VITALS: RESP 18
--- NOTE | 2023-05-28 03:59 | XR ---
EXAM: XR Chest, 1 View CLINICAL HISTORY: ITS.REASON XR Reason: abdominal pain TECHNIQUE: Frontal view of the chest. COMPARISON: 08/26/2022 FINDINGS: Lungs: Bibasilar atelectasis. Pleural space: Unremarkable. No pneumothorax. No pleural effusions. Heart: Unremarkable. No cardiomegaly. Mediastinum: Unremarkable. Bones/joints: No acute osseous abnormalities. IMPRESSION: Bibasilar atelectasis.
--- NOTE | 2023-05-28 04:05 | XR ---
EXAM: XR Chest, 1 View CLINICAL HISTORY: ITS.REASON XR Reason: NG tube placement TECHNIQUE: Frontal view of the chest. COMPARISON: No relevant prior studies available. FINDINGS: Lungs: See below. Pleural space: Unremarkable. No pneumothorax. Heart: Cardiomegaly. Mediastinum: Unremarkable. Bones/joints: Unremarkable. No effusions. No infiltrates. Tubes, lines and devices: Esophageal catheter is present the tip of which is coiled within the distal esophagus. This should be advanced several centimeters. Small bowel obstruction. IMPRESSION: Inappropriately positioned esophageal catheter with its tip in the distal esophagus. This should be advanced several centimeters.
[2023-05-28] MEDS ORDERED: VANCOMYCIN IV PER PHARMACY 1 EACH MISC MISCELLANE PRN (04:09)
--- NOTE | 2023-05-28 04:24 | CT ---
EXAM: CT Angiography Chest Without and With Intravenous Contrast CLINICAL HISTORY: ITS.REASON CT Reason: nonspecific abd pain. eval for pain, aortic injury TECHNIQUE: Axial computed tomographic angiography images of the chest without and with intravenous contrast. CTDI is 45.59 mGy and DLP is 919.7 mGy-cm. This CT exam was performed using one or more of the following dose reduction techniques: automated exposure control, adjustment of the mA and/or kV according to patient size, and/or use of iterative reconstruction technique. MIP reconstructed images were created and reviewed. COMPARISON: No relevant prior studies available. FINDINGS: Pulmonary arteries: Unremarkable. No pulmonary embolism. Aorta: Thoracic aorta without evidence of dissection, aneurysmal dilatation, or intramural hematoma. Lungs: Lungs demonstrate bilateral dependent atelectasis. No mass. Pleural space: Unremarkable. No significant effusion. No pneumothorax. Heart: Unremarkable. No cardiomegaly. No significant pericardial effusion. No evidence of RV dysfunction. Bones/joints: No acute fracture. No dislocation. Soft tissues: Unremarkable. Lymph nodes: Unremarkable. No enlarged lymph nodes. IMPRESSION: Thoracic aorta without evidence of dissection, aneurysmal dilatation, or intramural hematoma. EXAM: CT Angiography Abdomen and Pelvis Without and With Intravenous Contrast CLINICAL HISTORY: ITS.REASON CT Reason: nonspecific abd pain. eval for pain, aortic injury TECHNIQUE: Axial computed tomographic angiography images of the abdomen and pelvis without and with intravenous contrast. CTDI is 45.59 mGy and DLP is 919. 7 mGy-cm. This CT exam was performed using one or more of the following dose reduction techniques: automated exposure control, adjustment of the mA and/or kV according to patient size, and/or use of iterative reconstruction technique. MIP reconstructed images were created and reviewed. COMPARISON: No relevant prior studies available. FINDINGS: VASCULATURE: Aorta: No acute findings. No abdominal aortic aneurysm. No dissection. Celiac trunk and mesenteric arteries: No acute findings. No occlusion. Arcuate ligament narrowing of the celiac axis. Renal arteries: No acute findings. No occlusion or significant stenosis. Iliac arteries: No acute findings. No occlusion or significant stenosis. Lung bases: Unremarkable. No mass. No consolidation. ABDOMEN: Liver: Unremarkable. No mass. Gallbladder and bile ducts: Unremarkable. No calcified stones. No ductal dilation. Pancreas: Unremarkable. No ductal dilation. No mass. Spleen: Unremarkable. No splenomegaly. Adrenals: Unremarkable. No mass. Kidneys and ureters: Unremarkable. No obstructing stones. No hydronephrosis. No solid mass. Stomach and bowel: Moderate diffuse small bowel distention without evidence of a transition zone. Moderately distended stool-filled colon. No mucosal thickening. PELVIS: Appendix: No findings to suggest acute appendicitis. Bladder: Unremarkable. No stones. No mass. Reproductive: Unremarkable as visualized. ABDOMEN and PELVIS: Intraperitoneal space: Portal venous air is present. Findings are concerning for ischemic bowel. The main area that is concerning as the source of the bowel ischemia the stomach nondependent air with linear lucencies adjacent to the posterior wall. It is unclear within these are in adjacent portal venous structures were within the gastric wall itself. No free air is present. No significant fluid collection. Bones/joints: No acute fracture. No dislocation. Soft tissues: Unremarkable. Lymph nodes: Unremarkable. No enlarged lymph nodes. IMPRESSION: Portal venous air is present. Findings are concerning for ischemic bowel. The main area that is concerning as the source of the bowel ischemia the stomach nondependent air with linear lucencies adjacent to the posterior wall. No free air is present. <MYCVCSECTION> Communications: 05/28/23 04:06 Call Doctor Regarding Ischemic bowel/portal venous air, called Dr. Asif on 05/28 04:06 (-04:00)
[2023-05-28] MEDS ORDERED: VANCOMYCIN 1,250 MG in SODIUM CHLORIDE 0.9% 250 ML IVPB ONE (04:30)
--- NOTE | 2023-05-28 04:44 | XR ---
EXAM: XR Chest, 1 View CLINICAL HISTORY: ITS.REASON XR Reason: NGT PLACEMENT TECHNIQUE: Frontal view of the chest. COMPARISON: No relevant prior studies available. FINDINGS: Lungs: Unremarkable. No consolidation. Pleural space: Unremarkable. No pneumothorax. Heart: Cardiomegaly. Mediastinum: Unremarkable. Bones/joints: Unremarkable. Tubes, lines and devices: Esophageal catheter with its tip in the gastroesophageal junction. This is unchanged in position when compared with the prior exam and needs to be advanced several centimeters. IMPRESSION: No interval change from exam performed earlier on the same date.
[2023-05-28] MEDS ORDERED: PIPERACILLIN-TAZOBACTAM 3.375 GM in SODIUM CHLORIDE 0.9% 100 ML IVPB SCH (05:00)
[2023-05-28 05:35] VITALS: BP 144/88; PULSE 73
[2023-05-28] MEDS ORDERED: VANCOMYCIN 1,000 MG in SODIUM CHLORIDE 0.9% 250 ML IVPB SCH (17:00)
== END 2023-05-28 05:48 | disposition other institution (70) ==
LOC: EC 01:56
DX: K55.9 Vascular disorder of intestine, unspecified (principal); E07.9 Disorder of thyroid, unspecified; G20 Parkinson's disease; K21.9 Gastro-esophageal reflux disease without esophagitis; Z79.890 Hormone replacement therapy; Z79.82 Long term (current) use of aspirin; Z79.899 Other long term (current) drug therapy; Z88.8 Allergy status to other drugs, medicaments and biological substances
CPT/HCPCS: 36415; 93005; 80053; 82150; 83605; 83690; 85025; 85610; 85730; 87040; 71045; 71275; 74174; 99291; 96365; 96375 ×4; 96361 ×2; J2543; J3370; J2270; J2405; J3010; C9113; Q9967

== ENCOUNTER → 2023-11-21 | Outpatient (CLI) | payer MEDICARE ==
--- NOTE | 2023-11-21 15:20 | US ---
EXAMINATION TYPE: US thyroid st tissue head/neck DATE OF EXAM: 11/21/2023 COMPARISON: US 2022 CLINICAL INDICATION: Male, 82 years old with history of E04.1 thyroid nodule; GLAND SIZE: Right Lobe: 4.3 x 1.5 x 1.8 cm Overall Parenchyma: heterogenous Left Lobe: 3.4 x 1.1 x 1.1 cm Overall Parenchyma: heterogenous Isthmus Thickness: 0.1 cm NODULES RIGHT: # of nodules measured on right: 1 1. 1.5 X 0.8 x 1.5 cm, lower medial, solid or almost completely solid, isoechoic nodule, which is w ider than tall, with ill-defined margins, without echogenic foci. TR 3 Prior size: 1.5 x 1.1 x 1.5 cm LEFT: # of nodules measured on left: 0 ISTHMUS: # of nodules measured in the isthmus: 0 Bilateral neck scanned, no evidence of lymphadenopathy. IMPRESSION: Mildly suspicious nodule right lobe thyroid. Follow-up exam in one year is recommended. 2017 ACR TI-RADS LEVEL: TR-RADS 3 - Mildly Suspicious: Follow if > 1.5 cm, FNA if > 2.5 cm *Highest TI-RADS level nodule reported
== END | disposition home or self-care (01) ==
LOC: RADUSWWP 13:12
PROVIDERS: ATTEND Otolaryngology
DX: E04.1 Nontoxic single thyroid nodule (principal)
CPT/HCPCS: 76536

== ENCOUNTER → 2025-01-17 | Outpatient (CLI) | payer MEDICARE ==
--- NOTE | 2025-01-17 12:36 | US ---
EXAMINATION TYPE: US thyroid st tissue head/neck DATE OF EXAM: 01/17/2025 COMPARISON: CLINICAL INDICATION: Male, 84 years old with history of E04.1 NONTOXIC SINGLE THYROID NODULE; Follow up thyroid nodule. TECHNIQUE: Grayscale and color Doppler imaging of the thyroid gland. FINDINGS: GLAND SIZE: Right Lobe: 3.7 x 1.6 x 1.8 cm Overall Parenchyma: heterogeneous Left Lobe: 2.8 x 1.4 x 1.6 cm Overall Parenchyma: heterogeneous Isthmus Thickness: 0.2 cm NODULES RIGHT: # of nodules measured on right: 1 1. 1.4 X 1.6 x 0.9 cm, lower medial, solid or almost completely solid, isoechoic nodule, which is w ider than tall, with ill-defined margins, without echogenic foci. TR3 Prior size: 1.5 x 0.8 x 1.5 cm LEFT: # of nodules measured on left: 0 ISTHMUS: # of nodules measured in the isthmus: 0 Bilateral neck scanned, no evidence of lymphadenopathy. IMPRESSION: Stable heterogeneous small sized thyroid with stable right-sided solid nodule. 2017 ACR TI-RADS LEVEL: TI-RADS 3 - Mildly Suspicious: Follow if > 1.5 cm, FNA if > 2.5 cm *Highest TI-RADS level nodule reported [email or web address], , 01/17/2025 12:34 PM
== END | disposition home or self-care (01) ==
LOC: RADUSWWP 11:51
PROVIDERS: ATTEND Otolaryngology
DX: E04.1 Nontoxic single thyroid nodule (principal)
CPT/HCPCS: 76536